=== PATIENT | female | born 1980 | race Caucasian/White ===

== ENCOUNTER 2016-09-19 22:06 | Outpatient (CLI) | payer MEDICAID | END 2016-09-19 22:07 | disposition home or self-care (01) | DX: R42 Dizziness and giddiness (principal); E55.9 Vitamin D deficiency, unspecified ==

== ENCOUNTER 2016-09-28 09:24 | Outpatient (CLI) | payer MEDICAID | END 2016-09-28 09:25 | disposition home or self-care (01) | DX: N39.0 Urinary tract infection, site not specified (principal) ==

== ENCOUNTER 2017-01-19 09:51 | Emergency (ER) | payer MEDICAID ==
[2017-01-19] MEDS ORDERED: KETOROLAC 30 MG/ML VIAL IVP STA (11:51)
[2017-01-19] MEDS ORDERED: PROCHLORPERAZINE 10 MG/2 ML VIAL IVP STA (11:51)
[2017-01-19] MEDS ORDERED: SODIUM CHLORIDE 0.9% 1,000 ML IV ONE (11:51)
[2017-01-19] MEDS ORDERED: diphenhydrAMINE INJ 50 MG/ML VIAL IVP STA (11:51)
--- NOTE | 2017-01-19 11:53 | ED Physician Documentation ---
History of Present Illness - Stated complaint Stated Complaint: MIGRANE - Chief complaint Chief Complaint: Heent - Additonal information Additional information: hx from pt hx migraines has a L sided throbbing [place] similar to prior migraines no fever no ytrauma no CO exposure out of imitrex no numbness or weakness denies preg Review of Systems Constitutional: denies: Fever GI: reports: Nausea. denies: Vomiting : denies: Now EGA Musculoskeletal: denies: Neck pain Neurologic: reports: Headache. denies: Focal weakness, Numbness, Difficulty speaking Immunocompromised: denies: Immunocompromised, Chemotherapy PD PAST MEDICAL HISTORY - Past Medical History Neuro: Headache/migraine : Kidney stones Psych: Anxiety - Past Surgical History Past Surgical History: Yes General: Cholecystectomy - Present Medications Home Medications: Ambulatory Orders Medication Instructions Recorded Confirmed Desvenlafaxine Succinate [Pristiq] 1 tab PO DAILY 01/19/17 01/19/17 Sumatriptan Succinate [Imitrex] 6 mg SQ ONCE PRN #2 cartridge 01/19/17 - Allergies Allergies/Adverse Reactions: Allergies Allergy/AdvReac Type Severity Reaction Status Date / Time amoxicillin trihydrate * Allergy Rash Verified 01/19/17 10:04 [From Augmentin] azithromycin [From Zithromax] Allergy Hives Verified 01/19/17 10:04 Penicillins Allergy Hives Verified 01/19/17 10:04 potassium clavulanate * Allergy Rash Verified 01/19/17 10:04 [From Augmentin] - Social History Does the pt smoke?: Yes Smoking Status: Current every day smoker Does the pt drink ETOH?: No Does the pt have substance abuse?: No - Immunizations Immunizations are current?: Yes - POLST Patient has POLST: No PD ED PE NORMAL - Vitals Vital signs reviewed: Yes - General General: Alert and oriented X 3 - HEENT HEENT: PERRL - Neck Neck: Supple, no meningeal sign - Cardiac Cardiac: RRR - Respiratory Respiratory: No respiratory distress, Clear bilaterally - Derm Derm: Normal color - Neuro Neuro: Alert and oriented X 3, auto hiker 2-12 intact, No motor deficit, No sensory deficit - Psych Psych: Normal mood Results - Vitals Vitals: Vital Signs - 24 hr 01/19/17 01/19/17 01/19/17 10:02 13:05 13:15 Temperature 36.4 C L Heart Rate 72 70 78 Respiratory 12 14 16 Rate Blood Pressure 117/79 135/94 H 135/94 H O2 Saturation 100 100 98 Oxygen O2 Source Room air PD MEDICAL DECISION MAKING - ED course ED course: pt felt better with IVF toradol compazine and benadryl, no dystonic rxn, dc with refill imitrex Departure - Departure Disposition: 01 Home, Self Care Clinical Impression: Migraine Condition: Good Instructions: ED Headache Migraine Follow-Up: Galilea Monreal ARNP [Primary Care Provider] - Prescriptions: Sumatriptan Succinate [Imitrex] 6 mg SQ ONCE PRN #2 cartridge PRN Reason: onset of migraine Forms: Activity restrictions Discharge Date/Time: 01/19/17 13:16
[2017-01-19] MEDS ORDERED: KETOROLAC 30 MG/ML VIAL ONE (12:38)
[2017-01-19] MEDS ORDERED: diphenhydrAMINE INJ 50 MG/ML VIAL ONE (12:38)
[2017-01-19] MEDS ORDERED: PROCHLORPERAZINE 10 MG/2 ML VIAL ONE (12:39)
[2017-01-19 13:06] VITALS: BP 135/94
== END 2017-01-19 13:16 | disposition home or self-care (01) ==
LOC: ED 09:51
DX: G43.909 Migraine, unspecified, not intractable, without status migrainosus (principal); F17.200 Nicotine dependence, unspecified, uncomplicated
CPT/HCPCS: 96361; 96374; 96375; 99283; 99284

== ENCOUNTER 2017-03-07 13:30 | Outpatient (CLI) | payer MEDICAID | END 2017-03-07 13:45 | disposition home or self-care (01) | LOC: RT.N 13:30 | PROVIDERS: ATTEND Nurse Practitioner Gerontology | DX: I34.1 Nonrheumatic mitral (valve) prolapse (principal) | CPT/HCPCS: 93005 ==

== ENCOUNTER 2017-06-27 14:46 | Outpatient (CLI) | payer MEDICAID ==
[2017-06-27 13:07] LABS: HCT - HEMATOCRIT 37.4 % (37.0-47.0); HGB - HEMOGLOBIN 12.7 g/dL (12.0-16.0); MEAN CORPUSCULAR VOLUME 85.1 fL (81.0-99.0); MEAN PLATELET VOLUME 6.8 fL (7.9-10.8); RED BLOOD COUNT 4.4 10^6/uL (4.20-5.40); RED CELL DISTRIBUTION WIDTH 13.3 % (12.0-15.0); WHITE BLOOD COUNT 7.9 x10^3/uL (4.8-10.8)
[2017-06-27 13:29] LABS: ALBUMIN/GLOBULIN RATIO 1.2 (1.0-2.2); BILIRUBIN,TOTAL 0.5 mg/dL (0.2-1.0); CALCIUM 8.7 mg/dL (8.5-10.3); CREATININE 0.7 mg/dL (0.4-1.0); POTASSIUM 3.8 mmol/L (3.5-5.0); TOTAL PROTEIN 7.4 g/dL (6.7-8.2)
== END 2017-06-27 14:47 | disposition home or self-care (01) ==
LOC: LAB.N 14:46
PROVIDERS: ATTEND Nurse Practitioner Psychiatric/Mental Health
DX: F32.1 Major depressive disorder, single episode, moderate (principal); F43.10 Post-traumatic stress disorder, unspecified
CPT/HCPCS: 36415; 80053; 84443

== ENCOUNTER 2018-01-10 08:01 | Emergency (ER) | payer MEDICAID ==
[2018-01-10] MEDS ORDERED: KETOROLAC 30 MG/ML VIAL IVP STA (09:09)
[2018-01-10] MEDS ORDERED: PROCHLORPERAZINE 10 MG/2 ML VIAL IVP STA (09:09)
[2018-01-10] MEDS ORDERED: diphenhydrAMINE INJ 50 MG/ML VIAL IVP STA (09:09)
[2018-01-10] MEDS ORDERED: DEXAMETHASONE 10 MG/ML VIAL PO STA (09:10)
--- NOTE | 2018-01-10 09:12 | ED Physician Documentation ---
PD HPI HEADACHE - Stated complaint Stated Complaint: H/A - Chief complaint Chief Complaint: Neuro - History obtained from History obtained from: Patient - History of Present Illness Timing - onset: How many weeks ago (1) Timing - details: Still present, Waxing and waning Worst headache ever?: Worst headache ever? (no.) Location: Global Quality: Aching Improved by: Meds (Temporary improvement with Ibuprophen.) Similar symptoms before: Diagnosis (History of tension headaches and migraine headaches.) - Additional information Additional information: The patient is a 37-year-old female who presents with global headache that has been waxing and waning for the past week, on a daily basis. She gets temporary improvement with ibuprofen. She denies associated fever, nausea or vomiting, numbness or weakness. She has history of both tension headaches and migraine headaches, but not usually this bad. She underwent right sinus surgery 11 days ago. Review of Systems Constitutional: denies: Fever Eyes: reports: Photophobia (mild) Ears: denies: Ear pain Nose: denies: Congestion Throat: denies: Sore throat Cardiac: denies: Chest pain / pressure Respiratory: denies: Dyspnea GI: denies: Nausea, Vomiting : denies: Dysuria Skin: denies: Rash Musculoskeletal: denies: Neck pain Neurologic: reports: Headache. denies: Focal weakness, Numbness PD PAST MEDICAL HISTORY - Past Medical History Neuro: Headache/migraine : Kidney stones Psych: Anxiety - Past Surgical History Past Surgical History: Yes General: Cholecystectomy - Present Medications Home Medications: Ambulatory Orders Medication Instructions Recorded Confirmed Desvenlafaxine Succinate [Pristiq] 1 tab PO DAILY 01/19/17 01/19/17 Sumatriptan Succinate [Imitrex] 6 mg SQ ONCE PRN #2 cartridge 01/19/17 Atomoxetine HCl [Strattera] 01/10/18 - Allergies Allergies/Adverse Reactions: Allergies Allergy/AdvReac Type Severity Reaction Status Date / Time amoxicillin trihydrate * Allergy Rash Verified 01/10/18 08:26 [From Augmentin] azithromycin [From Zithromax] Allergy Hives Verified 01/10/18 08:26 Penicillins Allergy Hives Verified 01/10/18 08:26 potassium clavulanate * Allergy Rash Verified 01/10/18 08:26 [From Augmentin] - Social History Does the pt smoke?: Yes Smoking Status: Current every day smoker Does the pt drink ETOH?: No Does the pt have substance abuse?: No - Immunizations Immunizations are current?: Yes - POLST Patient has POLST: No PD ED PE NORMAL - Vitals Vital signs reviewed: Yes (Mild systolic hypertension initially.) - General General: Alert and oriented X 3, Well developed/nourished, Other (Appears miserable.) - HEENT HEENT: Atraumatic, PERRL, EOMI, Ears normal, Pharynx benign, Other (,Fundi with normal vasculature, without papilledema.) - Neck Neck: Supple, no meningeal sign, No adenopathy, No JVD - Cardiac Cardiac: RRR - Respiratory Respiratory: No respiratory distress, Clear bilaterally - Abdomen Abdomen: Soft, Non tender - Back Back: No CVA TTP - Derm Derm: No rash - Neuro Neuro: Alert and oriented X 3, No motor deficit, Normal speech Results - Vitals Vitals: Vital Signs - 24 hr 01/10/18 01/10/18 08:24 10:14 Temperature 36.8 C 36.6 C Heart Rate 90 72 Respiratory 18 20 Rate Blood Pressure 137/78 H 132/79 H O2 Saturation 100 98 Oxygen O2 Source Room air PD MEDICAL DECISION MAKING - ED course Complexity details: reviewed old records, re-evaluated patient, considered differential, d/w patient ED course: The patient's headache is nonspecific, but is consistent with migraine. Her presentation does not suggest meningitis, temporal arteritis, pseudotumor cerebri, or intracranial hemorrhage. Treatment in the emergency department included administration of ketorolac 30 mg IV, Compazine 10 mg IV, Benadryl 25 mg IV, and dexamethasone 10 mg orally. Her headache completely resolved with the above treatment. I discussed with her outpatient follow-up as well as potentially worrisome signs or symptoms that should prompt reevaluation in the emergency department. She has Imitrex at home if needed for recurrent headaches. Departure - Departure Disposition: 01 Home, Self Care Clinical Impression: Headache Qualifiers: Headache type: unspecified Headache chronicity pattern: acute headache Intractability: not intractable Qualified Code(s): R51 - Headache Condition: Stable Instructions: ED Cephalgia Unspecified Follow-Up: Galilea Monreal ARNP [Primary Care Provider] - Comments: Drink plenty of fluids. You can use Imitrex as previously prescribed if needed for headache. Follow up with your primary physician within 2 weeks. Call to schedule appointment. Return to the emergency [facility] if you develop increasing headache, persistent vomiting, or otherwise worsening symptoms.
[2018-01-10 10:18] VITALS: BP 132/79
== END 2018-01-10 10:35 | disposition home or self-care (01) ==
LOC: ED 08:01
DX: R51 Headache (principal)
CPT/HCPCS: 96374; 96375; 99283; J1200

== ENCOUNTER 2018-10-23 09:40 | Emergency (ER) | payer BC, MEDICAID ==
[2018-10-23 09:53] VITALS: BP 156/94
[2018-10-23] MEDS ORDERED: FAMOTIDINE 20 MG TABLET PO STA (10:03)
[2018-10-23] MEDS ORDERED: LIDOCAINE VISCOUS 2% 15 ML UDC MM STA (10:03)
[2018-10-23] MEDS ORDERED: PHENobarb/HYOSCY/ATROPINE/SCOP 5 ML UDC PO STA (10:03)
[2018-10-23] MEDS ORDERED: MAG HYDROX/AL HYDROX/SIMETH 30 ML UDC PO STA (10:03)
[2018-10-23] MEDS ORDERED: SUCRALFATE 1 GM/10 ML UDC PO STA (10:04)
[2018-10-23 10:15] LABS: BASOPHILS # (AUTO) 0.1 10^3/uL (0.0-0.1); BASOPHILS % (AUTO) 0.8 %; EOSINOPHILS # (AUTO) 0.1 10^3/uL (0.0-0.7); EOSINOPHILS % (AUTO) 1.6 %; HGB - HEMOGLOBIN 12.9 g/dL (12.0-16.0); LYMPHOCYTES # (AUTO) 2.1 10^3/uL (1.5-3.5); LYMPHOCYTES % (AUTO) 31.4 %; MEAN CORPUSCULAR HEMOGLOBIN 30.4 pg (27.0-31.0); MEAN CORPUSCULAR HGB CONC 35.6 g/dL (32.0-36.0); MEAN CORPUSCULAR VOLUME 85.3 fL (81.0-99.0); MEAN PLATELET VOLUME 6.3 fL (7.9-10.8); MONOCYTES # (AUTO) 0.4 10^3/uL (0.0-1.0); MONOCYTES % (AUTO) 6.4 %; NEUTROPHILS # (AUTO) 4.1 10^3/uL (1.5-6.6); NEUTROPHILS % (AUTO) 59.8 %; PLT - PLATELET COUNT 400 10^3/uL (130-450); RED BLOOD COUNT 4.23 10^6/uL (4.20-5.40); RED CELL DISTRIBUTION WIDTH 13.3 % (12.0-15.0); WHITE BLOOD COUNT 6.8 x10^3/uL (4.8-10.8)
[2018-10-23 10:28] LABS: ALBUMIN/GLOBULIN RATIO 1.3 (1.0-2.2); CALCIUM 8.8 mg/dL (8.5-10.3); CREATININE 0.6 mg/dL (0.4-1.0); TOTAL PROTEIN 7.1 g/dL (6.7-8.2)
--- NOTE | 2018-10-23 10:38 | ED Physician Documentation ---
PD HPI ABD PAIN - Stated complaint Stated Complaint: ABD PX/N/D - Chief complaint Chief Complaint: Abd Pain - History obtained from History obtained from: Patient - History of Present Illness Timing - onset: How many weeks ago (several) Timing - duration: Weeks Timing - details: Gradual onset Pain level max: 6 Pain level now: 4 Quality: Dull, Indigestion Location: Epigastric Radiation: Chest Improved by: Meds (prilosec, took for 1 week then stopped) Worsened by: Eating Associated symptoms: Nausea. No: Fever, Vomiting, Hematemesis, Diarrhea, Consti pation, Melena, Hematochezia, Dysuria, Hematuria Similar symptoms before: Diagnosis (GERD) Recently seen: Not recently seen Review of Systems Constitutional: denies: Fever, Chills Respiratory: denies: Cough : denies: Dysuria, Now EGA Skin: denies: Rash PD PAST MEDICAL HISTORY - Past Medical History Past Medical History: Yes GI: GERD : Kidney stones Psych: Anxiety - Past Surgical History Past Surgical History: Yes General: Cholecystectomy - Present Medications Home Medications: Ambulatory Orders Medication Instructions Recorded Confirmed Desvenlafaxine Succinate [Pristiq] 1 tab PO DAILY 01/19/17 10/23/18 Sumatriptan Succinate [Imitrex] 6 mg SQ ONCE PRN #2 cartridge 01/19/17 10/23/18 Atomoxetine HCl [Strattera] 1 cap PO DAILY 01/10/18 10/23/18 Esomeprazole Magnesium [Nexium] 40 mg PO DAILY #30 capsule. 10/23/18 Sucralfate [Carafate] 1 gm PO ACHS #60 tablet 10/23/18 Temazepam [Restoril] 30 mg PO DAILY 10/23/18 10/23/18 cloNIDine [Catapres] 1 tab PO BID 10/23/18 10/23/18 - Allergies Allergies/Adverse Reactions: Allergies Allergy/AdvReac Type Severity Reaction Status Date / Time amoxicillin trihydrate * Allergy Rash Verified 10/23/18 09:54 [From Augmentin] azithromycin [From Zithromax] Allergy Hives Verified 10/23/18 09:54 Penicillins Allergy Hives Verified 10/23/18 09:54 potassium clavulanate * Allergy Rash Verified 10/23/18 09:54 [From Augmentin] - Social History Does the pt smoke?: Yes Smoking Status: Current every day smoker Does the pt drink ETOH?: No Does the pt have substance abuse?: No - Immunizations Immunizations are current?: Yes - POLST Patient has POLST: No PD ED PE NORMAL - Vitals Vital signs reviewed: Yes - General General: Alert and oriented X 3, No acute distress, Well developed/nourished - HEENT HEENT: PERRL, Moist mucous membranes - Neck Neck: Supple, no meningeal sign - Cardiac Cardiac: RRR - Respiratory Respiratory: No respiratory distress, Clear bilaterally - Abdomen Abdomen: Soft, Non distended, Other (Tender palpation epigastric without peritoneal signs) - Back Back: No CVA TTP, No spinal TTP - Derm Derm: Warm and dry - Extremities Extremities: No edema - Neuro Neuro: Alert and oriented X 3 - Psych Psych: Normal mood, Normal affect Results - Vitals Vitals: Vital Signs - 24 hr 10/23/18 09:50 Temperature 36.4 C L Heart Rate 101 H Respiratory 14 Rate Blood Pressure 156/94 H O2 Saturation 100 Oxygen O2 Source Room air - Labs Labs: Laboratory Tests 10/23/18 10/23/18 10:09 10:09 WBC 6.8 RBC 4.23 Hgb 12.9 Hct 36.1 L MCV 85.3 MCH 30.4 MCHC 35.6 RDW 13.3 Plt Count 400 MPV 6.3 L Neut # (Auto) 4.1 Lymph # (Auto) 2.1 [place] # (Auto) 0.4 Eos # (Auto) 0.1 Baso # (Auto) 0.1 Absolute Nucleated RBC 0.01 Nucleated RBC % 0.1 Sodium 136 Potassium 3.7 Chloride 101 Carbon Dioxide 25 Anion Gap 10.0 BUN 7 Creatinine 0.6 Estimated GFR (MDRD) 111 Glucose 119 H Calcium 8.8 Total Bilirubin 1.0 AST 18 ALT 23 Alkaline Phosphatase 83 Total Protein 7.1 Albumin 4.0 Globulin 3.1 Albumin/Globulin Ratio 1.3 Lipase 28 PD MEDICAL DECISION MAKING - ED course Complexity details: reviewed results, re-evaluated patient, considered differential, d/w patient ED course: 38-year-old female with what appears to be gastritis. Feels better after GI cocktail. Will place on a PPI for home as well as Carafate. I will have her follow-up with her doctor for further care. No significant lab abnormalities. She is status post cholecystectomy 16 years ago. Patient is well-appearing, nontoxic. Afebrile. Tolerating p.o. without difficulty. Patient counseled regarding signs and symptoms for which I believe and urgent re-evaluation would be necessary. Patient with good understanding of and agreement to plan and is comfortable going home at this time This document was made in part using voice recognition software. While efforts are made to proofread this document, sound alike and grammatical errors may occur. Departure - Departure Disposition: 01 Home, Self Care Clinical Impression: Gastritis Qualifiers: Gastritis type: unspecified gastritis Chronicity: acute Gastritis bleeding: without bleeding Qualified Code(s): K29.00 - Acute gastritis without bleeding Condition: Good Instructions: ED Gastritis Follow-Up: Galilea Monreal ARNP [Primary Care Provider] - Within 1 week Prescriptions: Esomeprazole Magnesium [Nexium] 40 mg PO DAILY #30 capsule. Sucralfate [Carafate] 1 gm PO ACHS #60 tablet Comments: Take the medications as prescribed. Return if you worsen. Follow-up with your doctor for further evaluation and care. Your laboratory testing is normal today. Discharge Date/Time: 10/23/18 10:43
== END 2018-10-23 10:43 | disposition home or self-care (01) ==
LOC: ED 09:40
DX: K29.00 Acute gastritis without bleeding (principal); F17.200 Nicotine dependence, unspecified, uncomplicated
CPT/HCPCS: 36415; 80053; 83690; 85025; 99281; 99283; A9270

== ENCOUNTER 2018-11-27 06:35 | Day surgery (SDC) | payer BC, MEDICAID ==
[2018-11-27] MEDS ORDERED: LACTATED RINGERS 1,000 ML IV ONE (06:43)
[2018-11-27] MEDS ORDERED: LIDO GARGLE 30 ML BOTTLE PO ONE (07:35)
[2018-11-27] MEDS ORDERED: LIDO GARGLE 30 ML BOTTLE ONE (08:13)
[2018-11-27] MEDS ORDERED: fentaNYL 250 MCG/5 ML VIAL IVP ONE (08:51)
[2018-11-27] MEDS ORDERED: MIDAZOLAM 2 MG/2 ML VIAL IVP ONE (08:51)
[2018-11-27 09:32] VITALS: BP 121/83
== END 2018-11-27 06:36 | disposition home or self-care (01) ==
LOC: SDS 06:35
PROVIDERS: ATTEND Internal Medicine Gastroenterology
PROC: 0DBM8ZX Excision of Descending Colon, Via Natural or Artificial Opening Endoscopic, Diagnostic (ICD-10-PCS; 2018-11-27)
PROC: 0DBN8ZZ Excision of Sigmoid Colon, Via Natural or Artificial Opening Endoscopic (ICD-10-PCS; 2018-11-27)
PROC: 0DB98ZX Excision of Duodenum, Via Natural or Artificial Opening Endoscopic, Diagnostic (ICD-10-PCS; 2018-11-27)
PROC: 0DB68ZX Excision of Stomach, Via Natural or Artificial Opening Endoscopic, Diagnostic (ICD-10-PCS; 2018-11-27)
PROC: 0DB48ZX Excision of Esophagogastric Junction, Via Natural or Artificial Opening Endoscopic, Diagnostic (ICD-10-PCS; 2018-11-27)
PROC: 0DBK8ZX Excision of Ascending Colon, Via Natural or Artificial Opening Endoscopic, Diagnostic (ICD-10-PCS; principal; 2018-11-27 08:15)
PROC: 0DBP8ZZ Excision of Rectum, Via Natural or Artificial Opening Endoscopic (ICD-10-PCS; 2018-11-27 08:15)
DX: R10.9 Unspecified abdominal pain (principal); D12.5 Benign neoplasm of sigmoid colon; K62.1 Rectal polyp; K21.9 Gastro-esophageal reflux disease without esophagitis; R19.7 Diarrhea, unspecified; K59.00 Constipation, unspecified; K31.9 Disease of stomach and duodenum, unspecified; K58.0 Irritable bowel syndrome with diarrhea
CPT/HCPCS: 43239; 45380; 45385; A9270; J3010; J7120

== ENCOUNTER 2019-03-12 12:39 | Emergency (ER) | payer BC, MEDICAID ==
[2019-03-12 12:44] VITALS: BP 133/91
[2019-03-12] MEDS ORDERED: CHERRY SYRUP 10 ML UDC PO ONE (14:49)
[2019-03-12] MEDS ORDERED: DEXAMETHASONE 10 MG/ML VIAL PO STA (14:49)
--- NOTE | 2019-03-12 14:51 | ED Physician Documentation ---
PD HPI HEENT - Stated complaint Stated Complaint: SINUS PRESSURE - Chief complaint Chief Complaint: General - History obtained from History obtained from: Patient - History of Present Illness Timing - onset: How many days ago (3) Timing - duration: Days (3) Timing - details: Gradual onset, Still present Location: Sinuses Improves: Medication Associated symptoms: Congestion, Rhinorrhea, Facial swelling, Headache, Cough Similar symptoms before: Diagnosis (sinusitis) Recently seen: Not recently seen - Additional information Additional information: 38-year-old female with a prior history of sinus disease has developed a cough and congestion with sinus pressure and she is not able to breathe through her nose at all. She is come to the emergency department for treatment. She is all ergic to amoxicillin and azithromycin. Review of Systems Constitutional: denies: Fever Eyes: denies: Decreased vision Ears: denies: Ear pain Nose: reports: Rhinorrhea / runny nose, Congestion, Sinus pressure / pain Throat: denies: Sore throat Cardiac: denies: Chest pain / pressure, Palpitations Respiratory: reports: Cough. denies: Dyspnea GI: denies: Vomiting PD PAST MEDICAL HISTORY - Past Medical History Past Medical History: No Cardiovascular: None Respiratory: None Neuro: None Endocrine/Autoimmune: None GI: GERD CADDIE: None : Kidney stones HEENT: None Psych: Depression, Anxiety, Panic attacks, ADD/ADHD, Post traumatic stress disorder Musculoskeletal: None Derm: None - Past Surgical History Past Surgical History: Yes General: Cholecystectomy - Present Medications Home Medications: Ambulatory Orders Medication Instructions Recorded Confirmed Desvenlafaxine Succinate [Pristiq] 1 tab PO DAILY 01/19/17 11/27/18 Sumatriptan Succinate [Imitrex] 6 mg SQ ONCE PRN #2 cartridge 01/19/17 11/26/18 Atomoxetine HCl [Strattera] 1 cap PO DAILY 01/10/18 11/27/18 Esomeprazole Magnesium [Nexium] 40 mg PO DAILY #30 capsule. 10/23/18 11/27/18 Temazepam [Restoril] 30 mg PO DAILY PRN 10/23/18 11/27/18 cloNIDine [Catapres] 1 tab PO BID 10/23/18 11/27/18 Cefdinir 300 mg PO BID #20 capsule 03/12/19 - Allergies Allergies/Adverse Reactions: Allergies Allergy/AdvReac Type Severity Reaction Status Date / Time amoxicillin trihydrate * Allergy Rash Verified 03/12/19 12:44 [From Augmentin] azithromycin [From Zithromax] Allergy Hives Verified 03/12/19 12:44 Penicillins Allergy Hives Verified 03/12/19 12:44 potassium clavulanate * Allergy Rash Verified 03/12/19 12:44 [From Augmentin] - Social History Does the pt smoke?: No Smoking Status: Former smoker Does the pt drink ETOH?: No Does the pt have substance abuse?: No - Immunizations Immunizations are current?: Yes - POLST Patient has POLST: No PD ED PE NORMAL - Vitals Vital signs reviewed: Yes (hypertensive mild ) - General General: Alert and oriented X 3, No acute distress, Well developed/nourished - HEENT HEENT: Atraumatic, PERRL, EOMI, Other (both TM's are inflamed the maxillary sinuses are tender to palpation bilaterally frontals are not. ) - Neck Neck: Supple, no meningeal sign, No bony TTP - Cardiac Cardiac: RRR, No murmur - Respiratory Respiratory: No respiratory distress, Clear bilaterally - Abdomen Abdomen: Soft, Non tender - Derm Derm: Normal color, Warm and dry, No rash - Extremities Extremities: No deformity, No edema - Neuro Neuro: Alert and oriented X 3, comfort advisor 2-12 intact, No motor deficit, No sensory deficit, Normal speech Eye Opening: Spontaneous Motor: Obeys Commands Verbal: Oriented GCS Score: 15 - Psych Psych: Normal mood, Normal affect Results - Vitals Vitals: Vital Signs - 24 hr 03/12/19 12:41 Temperature 36.9 C Heart Rate 100 Respiratory 19 Rate Blood Pressure 133/91 H O2 Saturation 96 Oxygen O2 Source Room air PD MEDICAL DECISION MAKING - ED course Complexity details: considered differential, d/w patient ED course: 38-year-old female with acute sinusitis is administered dexamethasone 10 mg orally and we will place her on some Cefdinir Departure - Departure Disposition: 01 Home, Self Care Clinical Impression: Sinusitis Condition: Stable Instructions: ED Sinusitis Abx Tx Follow-Up: Skylar Chapin ARNP, [facility] [Primary Care Provider] - Prescriptions: Cefdinir 300 mg PO BID #20 capsule
== END 2019-03-12 15:01 | disposition home or self-care (01) ==
LOC: ED 12:39
DX: J01.00 Acute maxillary sinusitis, unspecified (principal); Z87.891 Personal history of nicotine dependence
CPT/HCPCS: 99282; 99284; A9270

== ENCOUNTER 2019-10-16 09:23 | Emergency (ER) | payer BC, MEDICAID ==
[2019-10-16 09:36] VITALS: BP 145/84
[2019-10-16] MEDS ORDERED: TETANUS/DIPHTHERIA/PERTUSSIS 0.5 ML SYRINGE IM ONE (09:58)
--- NOTE | 2019-10-16 10:14 | ED Physician Documentation ---
History of Present Illness - Stated complaint Stated Complaint: LAC FINGER ON L HAND - Chief complaint Chief Complaint: Laceration - History obtained from History obtained from: Patient - History of Present Illness Timing: Other (L index finger) Pain level max: 0 Pain level now: 0 - Additonal information Additional information: laceration to the L index finger from a knife. Patient is right-handed. Unknown last tetanus shot. Nothing makes it better or worse. 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 This is been ongoing for the last week. No known injury. 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 10/23/18 11/27/18 Temazepam [Restoril] 30 mg PO DAILY PRN 10/23/18 11/27/18 cloNIDine [Catapres] 1 tab PO BID 10/23/18 11/27/18 Cefdinir 300 mg PO BID #20 capsule 03/12/19 - Allergies Allergies/Adverse Reactions: Allergies Allergy/AdvReac Type Severity Reaction Status Date / Time amoxicillin trihydrate * Allergy Rash Verified 10/16/19 09:36 [From Augmentin] azithromycin [From Zithromax] Allergy Hives Verified 10/16/19 09:36 Penicillins Allergy Hives Verified 10/16/19 09:36 potassium clavulanate * Allergy Rash Verified 10/16/19 09:36 [From Augmentin] - Social History Does the pt smoke?: No Smoking Status: Former smoker Does the pt drink ETOH?: No Does the pt have substance abuse?: No - Immunizations Immunizations are current?: Yes - POLST Patient has POLST: No PD ED PE NORMAL - Vitals Vital signs reviewed: Yes - General General: Alert and oriented X 3, No acute distress - HEENT HEENT: Moist mucous membranes - Derm Derm: Warm and dry - Extremities Extremities: Other (L index finger Superficial laceration to the proximal phalanx. No active bleeding. No tendon injury. Neurovascular intact. No bony tenderness over the hand. Otherwise normal examination of the hand.) - Neuro Neuro: Alert and oriented X 3 Results - Vitals Vitals: Vital Signs - 24 hr 10/16/19 09:32 Temperature 36.9 C Heart Rate 86 Respiratory 16 Rate Blood Pressure 145/84 H O2 Saturation 98 Oxygen O2 Source Room air Procedures - Laceration (location) L index finger Length in cm: 1.5 Wound type: Linear, Superficial, Clean Neurovascular status: Sensory intact, Motor intact, Vascular intact Tendon involvement: Tendon intact Wound Preparation: Irrigated copiously NS Skin layer closure: Dermabond Other: Patient tolerated well, No complications, Neurovascular intact, Tetanus booster given (tdap) Complexity: Simple PD MEDICAL DECISION MAKING - ED course Complexity details: considered differential, d/w patient ED course: Laceration repaired. Tolerated well. Appears to have a strain of the muscles in the hand as well. We will continue supportive care for this. Patient is right-handed. Warnings of infection and instructions on wound care given at bedside. Also counseled on how to minimize scarring. Patient counseled regarding signs and symptoms for which I believe and urgent re-evaluation would be necessary. Patient with good understanding of and agreement to plan and is comfortable going home at this time This document was made in part using voice recognition software. While efforts are made to proofread this document, sound alike and grammatical errors may occur. Departure - Departure Disposition: 01 Home, Self Care Clinical Impression: Laceration of left index finger Qualifiers: Encounter type: initial encounter Damage to nail status: unspecified Foreign body presence: unspecified Qualified Code(s): S61.211A - Laceration without foreign body of left index finger without damage to nail, initial encounter Strain of left hand Qualifiers: Encounter type: initial encounter Qualified Code(s): S66.912A - Strain of unspecified muscle, fascia and tendon at wrist and hand level, left hand, initial encounter Condition: Good Instructions: ED Laceration Hand Follow-Up: your,doctor as needed [Other] Comments: Return if you notice redness, swelling or drainage from the wound. Your hand pain should also improve over the next week or so. You can use Motrin or Tylenol as needed for pain.
== END 2019-10-16 10:20 | disposition home or self-care (01) ==
LOC: ED 09:23
DX: S61.211A Laceration without foreign body of left index finger without damage to nail, initial encounter (principal); W26.0XXA Contact with knife, initial encounter; S66.912A Strain of unspecified muscle, fascia and tendon at wrist and hand level, left hand, initial encounter; X58.XXXA Exposure to other specified factors, initial encounter; Z23 Encounter for immunization; Z87.891 Personal history of nicotine dependence
CPT/HCPCS: 12001; 12011; 90471; 99283; 99284

== ENCOUNTER 2020-02-23 19:29 | Emergency (ER) | payer MEDICAID ==
--- NOTE | 2020-02-23 19:39 | ED Physician Documentation ---
PD HPI HEENT - Stated complaint Stated Complaint: SINUS PX - History obtained from History obtained from: Patient - History of Present Illness Timing - onset: How many days ago (10) Timing - duration: Days Timing - details: Intermittant Location: Sinuses Improves: Nothing Worsens: Other (no exacerbating factors) Associated symptoms: Congestion, Headache. 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 10/23/18 11/27/18 Temazepam [Restoril] 30 mg PO DAILY PRN 10/23/18 11/27/18 cloNIDine [Catapres] 1 tab PO BID 10/23/18 11/27/18 Cefdinir 300 mg PO BID #20 capsule 03/12/19 Cefdinir 300 mg PO BID #20 capsule 02/23/20 Fluticasone [Flonase] 1 sprays DIGNA BID #1 bottle 02/23/20 - Allergies Allergies/Adverse Reactions: Allergies Allergy/AdvReac Type Severity Reaction Status Date / Time amoxicillin trihydrate * Allergy Rash Verified 10/16/19 09:36 [From Augmentin] azithromycin [From Zithromax] Allergy Hives Verified 10/16/19 09:36 Penicillins Allergy Hives Verified 10/16/19 09:36 potassium clavulanate * Allergy Rash Verified 10/16/19 09:36 [From Augmentin] - Social History Does the pt smoke?: No Smoking Status: Former smoker Does the pt drink ETOH?: No Does the pt have substance abuse?: No - Immunizations Immunizations are current?: Yes - POLST Patient has POLST: No PD ED PE NORMAL - Vitals Vital signs reviewed: Yes - General General: Alert and oriented X 3, No acute distress, Well developed/nourished - HEENT HEENT: Moist mucous membranes, Pharynx benign, Other (tender to percussion over bilateral maxillary sinuses without erythema or overt/visible swelling) - Neck Neck: Supple, no meningeal sign - Respiratory Respiratory: No respiratory distress, Clear bilaterally Results - Vitals Vitals: Vital Signs - 24 hr 02/23/20 19:39 Temperature 36.6 C Heart Rate 89 Respiratory 16 Rate Blood Pressure 153/91 H O2 Saturation 97 Oxygen O2 Source Room air PD MEDICAL DECISION MAKING - ED course Complexity details: considered differential, d/w patient Departure - Departure Disposition: 01 Home, Self Care Clinical Impression: Sinusitis Condition: Good Instructions: ED Sinusitis Abx Tx Prescriptions: Cefdinir 300 mg PO BID #20 capsule Fluticasone [Flonase] 1 sprays DIGNA BID #1 bottle Discharge Date/Time: 02/23/20 20:18
[2020-02-23 19:41] VITALS: BP 153/91
[2020-02-23] MEDS ORDERED: DEXAMETHASONE 10 MG/ML VIAL PO STA (20:01)
[2020-02-23] MEDS ORDERED: CHERRY SYRUP 10 ML UDC PO ONE (20:01)
[2020-02-23] MEDS ORDERED: cephALEXin 250 MG CAPSULE PO STA (20:10)
== END 2020-02-23 20:18 | disposition home or self-care (01) ==
LOC: ED 19:29
DX: J32.0 Chronic maxillary sinusitis (principal); Z87.891 Personal history of nicotine dependence
CPT/HCPCS: 99282; 99283; A9270

== ENCOUNTER 2020-06-03 15:22 | Emergency (ER) | payer MEDICAID ==
[2020-06-03] MEDS ORDERED: DEXAMETHASONE 10 MG/ML VIAL PO STA (15:56)
[2020-06-03] MEDS ORDERED: MECLIZINE 12.5 MG TABLET PO STA (15:56)
[2020-06-03] MEDS ORDERED: CHERRY SYRUP 10 ML UDC PO ONE (15:56)
--- NOTE | 2020-06-03 16:03 | ED Physician Documentation ---
History of Present Illness - Stated complaint Stated Complaint: DIZZY SPELLS,HEADACHE - Chief complaint Chief Complaint: Neuro - History obtained from History obtained from: Patient - History of Present Illness Timing: Today - Additonal information Additional information: 39 y/o female with a history of sinus infection has developed dizziness and an occipital headache. She has dizziness with head movement and with eye movement. She has nausea. She denies cough, fever, ear pain, muffled hearing or sore throat. She denies maxillary sinus tenderness. Review of Systems Constitutional: denies: Fever, Chills, Myalgias, Fatigue Eyes: denies: Decreased vision Ears: denies: Ear pain Nose: denies: Rhinorrhea / runny nose, Congestion Throat: denies: Sore throat Cardiac: denies: Chest pain / pressure, Palpitations Respiratory: denies: Dyspnea, Cough GI: reports: Nausea. denies: Abdominal Pain, Vomiting : denies: Dysuria, Frequency Skin: denies: Rash Musculoskeletal: denies: Neck pain, Back pain, Extremity pain Neurologic: reports: Headache. 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 10/23/18 11/27/18 Temazepam [Restoril] 30 mg PO DAILY PRN 10/23/18 11/27/18 cloNIDine [Catapres] 1 tab PO BID 10/23/18 11/27/18 Cefdinir 300 mg PO BID #20 capsule 03/12/19 Cefdinir 300 mg PO BID #20 capsule 02/23/20 Fluticasone [Flonase] 1 sprays DIGNA BID #1 bottle 02/23/20 Meclizine [Antivert] 25 mg PO Q6H PRN #20 tablet 06/03/20 - Allergies Allergies/Adverse Reactions: Allergies Allergy/AdvReac Type Severity Reaction Status Date / Time amoxicillin trihydrate * Allergy Rash Verified 06/03/20 15:47 [From Augmentin] azithromycin [From Zithromax] Allergy Hives Verified 06/03/20 15:47 Penicillins Allergy Hives Verified 06/03/20 15:47 potassium clavulanate * Allergy Rash Verified 06/03/20 15:47 [From Augmentin] - Social History Does the pt smoke?: No Smoking Status: Never smoker Does the pt drink ETOH?: No Does the pt have substance abuse?: No - Immunizations Immunizations are current?: Yes - POLST Patient has POLST: No PD ED PE NORMAL - Vitals Vital signs reviewed: Yes (hypertensive) - General General: Alert and oriented X 3, No acute distress, Well developed/nourished - HEENT HEENT: Atraumatic, PERRL, EOMI, Ears normal, Moist mucous membranes, Pharynx benign, Dentition benign, Other (3 beats of nystagmus bilaterally ) - Neck Neck: Supple, no meningeal sign, No bony TTP - Cardiac Cardiac: RRR, No murmur - Respiratory Respiratory: No respiratory distress, Clear bilaterally - Abdomen Abdomen: Soft, Non tender - Back Back: No CVA TTP, No spinal TTP - Derm Derm: Normal color, Warm and dry, No rash - Extremities Extremities: No deformity, Normal ROM s pain, No edema, No calf tenderness / cord - Neuro Neuro: Alert and oriented X 3, 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 At the inferior aspect of the left maxillary sinus, there is chronic remodeling changes seen surrounding a maxillary molar. Please correlate with dental history.), EMP read indepedently, See rad report PD MEDICAL DECISION MAKING - ED course Complexity details: reviewed results, re-evaluated patient, considered differential, d/w patient ED course: 39 y/o female with acute labyrinthitis has an occipital headache and a history of recurrent sinusitis. I felt it important to rule out a sphenoid sinus infection and a screening sinus CT is obtained which demonstrates no obvious sinus involvement. She is administered PO decadron and meclizine with mild improvement. Departure - Departure Disposition: Home, Self Care Clinical Impression: Labyrinthitis Qualifiers: Laterality: unspecified laterality Qualified Code(s): H83.09 - Labyrinthitis, unspecified ear Condition: Stable Instructions: ED Labyrinthitis Follow-Up: Skylar Chapin ARNP, INSURANCE VERIFICATION SPECIALIST-C [Primary Care Provider] - Prescriptions: Meclizine [Antivert] 25 mg PO Q6H PRN #20 tablet PRN Reason: Dizziness
--- NOTE | 2020-06-03 16:32 | CT Report ---
PROCEDURE: Sinuses INDICATIONS: dizzy, headache, sinus problems TECHNIQUE: Noncontrast 3.0 mm axial images acquired from the frontal sinuses to the mid-sella, with coronal and sagittal reformats. For radiation dose reduction, the following was used: automated exposure control , adjustment of mA and/or kV according to patient size. COMPARISON: None. FINDINGS: Image quality: Excellent. Maxillary Sinuses: At the inferior aspects of the left maxillary sinus, there is lucency and bony re modeling seen surrounding the roots of the maxillary molar, as on series 5 image 17. There has been r emoval of portions of the medial wall of the right maxillary sinus. Sinuses are otherwise clear. Ethmoid Air Cells: No bony remodeling or destruction. Sinuses are clear. Sphenoid Sinuses: No bony remodeling or destruction. Sinuses are clear. Frontal Sinuses: No bony remodeling or destruction. Sinuses are clear. Ostiomeatal Complexes: Right sided antrectomy, with removal of the right ostiomeatal complex. The le ft ostiomeatal complex is patent. No Kevin cells. Miscellaneous: Visualized intra-orbital contents are normal. No ruchi bullosa. There is minimal le ftward nasal septal deviation. IMPRESSION: No significant active paranasal sinus disease is seen. At the inferior aspect of the left left maxillary sinus, there is chronic remodeling change seen surr ounding a maxillary molar. Please correlate with dental history. Reviewed by: Joshua Avendano MD on 06/03/2020 3:30 PM [facility] Approved by: Joshua Avendano MD on 06/03/2020 3:30 PM [facility] Station ID: [id number]
[2020-06-03 16:42] VITALS: BP 139/86
== END 2020-06-03 16:52 | disposition home or self-care (01) ==
LOC: ED 15:22
DX: H83.09 Labyrinthitis, unspecified ear (principal); Z87.09 Personal history of other diseases of the respiratory system
CPT/HCPCS: 70486; 99284; A9270

== ENCOUNTER 2020-06-28 16:21 | Emergency (ER) | payer MEDICAID ==
[2020-06-28] MEDS ORDERED: BACITRACIN ZINC OINT 1 PACKET TOP STA (17:03)
[2020-06-28] MEDS ORDERED: BUFFERED LIDOCAINE 10 ML SYRINGE SUBQ STA (17:03)
--- NOTE | 2020-06-28 17:06 | ED Physician Documentation ---
History of Present Illness - Stated complaint Stated Complaint: LT FINGER LAC - Chief complaint Chief Complaint: Laceration - History obtained from History obtained from: Patient - History of Present Illness Timing: Prior to arrival - Additonal information Additional information: 39-year-old female presents to the emergency department for evaluation of a laceration sustained on the left lateral distal tip of the small finger sustained this afternoon when using a mandolin. Patient is right-handed. Reports her tetanus is up-to-date. 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 10/23/18 11/27/18 Temazepam [Restoril] 30 mg PO DAILY PRN 10/23/18 11/27/18 cloNIDine [Catapres] 1 tab PO BID 10/23/18 11/27/18 Cefdinir 300 mg PO BID #20 capsule 03/12/19 Cefdinir 300 mg PO BID #20 capsule 02/23/20 Fluticasone [Flonase] 1 sprays DIGNA BID #1 bottle 02/23/20 Meclizine [Antivert] 25 mg PO Q6H PRN #20 tablet 06/03/20 - Allergies Allergies/Adverse Reactions: Allergies Allergy/AdvReac Type Severity Reaction Status Date / Time amoxicillin trihydrate * Allergy Rash Verified 06/28/20 16:31 [From Augmentin] azithromycin [From Zithromax] Allergy Hives Verified 06/28/20 16:31 Penicillins Allergy Hives Verified 06/28/20 16:31 potassium clavulanate * Allergy Rash Verified 06/28/20 16:31 [From Augmentin] - Social History Does the pt smoke?: No Smoking Status: Never smoker Does the pt drink ETOH?: No Does the pt have substance abuse?: No - Immunizations Immunizations are current?: Yes - POLST Patient has POLST: No PD ED PE EXPANDED - Extremities Extremities: Left finger(s) (Left small finger with 1 cm linear laceration distal tip ulnar side. No nailbed involvement. Flexion extension at DIP against resistance.) Results - Vitals Vitals: Vital Signs - 24 hr 06/28/20 16:29 Temperature 36.8 C Heart Rate 109 H Respiratory 16 Rate Blood Pressure 157/107 H O2 Saturation 97 Oxygen O2 Source Room air Procedures - Laceration (location) left small finger Length in cm: 1 Wound type: Linear Neurovascular status: Sensory intact, Motor intact, Vascular intact Tendon involvement: Tendon intact Anesthesia: Lidocaine 1% Wound Preparation: Chlorhexadine, Irrigated copiously NS Skin layer closure: Size #-0 - enter number (4), Sutures - enter # (3) Other: Patient tolerated well, No complications, Neurovascular intact, Dressing applied, Tetanus UTD Complexity: Simple PD MEDICAL DECISION MAKING - ED course Complexity details: considered differential, d/w patient ED course: simple laceration distal left small finger laceration sustained prior to arrival. tetanus is utd. closed simply with 3 sutures. routine wound care and emergent return precautions discussed Departure - Departure Disposition: 01 Home, Self Care Clinical Impression: Finger laceration Qualifiers: Encounter type: initial encounter Finger: little finger Damage to nail status: without damage Foreign body presence: without foreign body Laterality: left Qualified Code(s): S61.217A - Laceration without foreign body of left little finger without damage to nail, initial encounter Condition: Stable Record reviewed to determine appropriate education?: Yes Instructions: ED Laceration Hand Comments: Your suture should be removed in 7 to 10 days. In 24 hours you may gently wash your hand with warm soap and water, apply antibiotic ointment, and a simple bandage. If at any point you are concerned you are developing infection, return for a second look
[2020-06-28 18:23] VITALS: BP 148/86
== END 2020-06-28 18:23 | disposition home or self-care (01) ==
LOC: ED 16:21
DX: S61.217A Laceration without foreign body of left little finger without damage to nail, initial encounter (principal); W27.4XXA Contact with kitchen utensil, initial encounter; Y93.G1 Activity, food preparation and clean up
CPT/HCPCS: 12001; 99281; 99283; A9270

== ENCOUNTER 2020-07-13 15:30 | Outpatient (CLI) | payer MEDICAID ==
--- NOTE | 2020-07-14 13:22 | Mammography Report ---
BILATERAL DIGITAL SCREENING MAMMOGRAM 3D/2D: 07/13/2020 CLINICAL: Baseline exam. Routine screening. No prior exams were available for comparison. The tissue of both breasts is heterogeneously dense. T his may lower the sensitivity of mammography. There is a round mass in the right breast at 7 o'clock middle depth. There is a focal asymmetry in the left breast at 12 o'clock middle depth. No other significant masses or calcifications are seen in either breast. IMPRESSION: INCOMPLETE: NEEDS ADDITIONAL IMAGING EVALUATION The round mass in the right breast at 7 o'clock middle depth likely represents a cyst and is indeterm inate. Additional views with possible ultrasound are recommended. The focal asymmetry in the left breast at 12 o'clock middle depth likely represents a cyst and is ind eterminate. Additional views with possible ultrasound are recommended. This exam was interpreted at Station ID: [id number]. NOTE: For mammograms, a report in lay terms will be sent to the patient. Approximately 15% of breast malignancies will not be visualized mammographically. In the management of a palpable breast mass, a negative mammogram must not discourage biopsy of a clinically suspicious lesion. Electronically Signed By: Ambreen landin/molly:07/13/2020 16:35:26 ACR BI-RADS Category 0: Incomplete 3340F PARENCHYMAL PATTERN: (D) - The breast(s) demonstrate(s) heterogeneously dense fibroglandular parwilmary dandre. BI-RADS CATEGORY: (0) - 0 Ultrasound [id number] Immediate follow-up LATERALITY: (B)
== END 2020-07-13 15:31 | disposition home or self-care (01) ==
LOC: DI.N 15:30
PROVIDERS: ATTEND Nurse Practitioner
DX: Z12.31 Encounter for screening mammogram for malignant neoplasm of breast (principal); R92.8 Other abnormal and inconclusive findings on diagnostic imaging of breast
CPT/HCPCS: 77063; 77067

== ENCOUNTER 2020-09-16 09:06 | Outpatient (CLI) | payer MEDICAID ==
--- NOTE | 2020-09-19 07:53 | Ultrasound Report ---
LIMITED ULTRASOUND OF RIGHT BREAST: 09/16/2020 CLINICAL: Short term follow up of the right breast, due for bilateral imaging. Comparison is made to exams dated: 09/16/2020 mammogram and 07/13/2020 mammogram - [facility]. Color flow and real-time ultrasound of the right breast 7-9 o'clock region were performed. Hewitt scal e images of the real-time examination were reviewed. There is a 0.8 cm x 0.6 cm x 0.5 cm cyst with a septated internal wall in the right breast at 8 o'virgilio ck middle depth 3 cm from the nipple. This cyst is anechoic with a well-defined boundary and posteri or acoustic enhancement. Color flow imaging demonstrates that there is no vascularity present. There also is a 1.3 cm x 1.1 cm x 0.5 cm irregular cyst in the right breast at 8 o'clock middle depth 4 cm from the nipple. This irregular cyst is anechoic with posterior acoustic enhancement. This co rrelates with mammography findings. Color flow imaging demonstrates that there is no vascularity pre sent. Additional cyst at 7:00 3 cm from the nipple measuring 0.5 cm appears simple. IMPRESSION: PROBABLY BENIGN 1) The 0.8 cm cyst in the right breast at 8 o'clock middle depth is consistent with a complicated cys t or cyst cluster and is probably benign. -Follow-up mammogram and ultrasound in 6 months is recommended. 2) The 1.3 cm irregular cyst in the right breast at 8 o'clock middle depth is consistent with a mildl y complicated cyst and is probably benign. -Follow-up mammogram and ultrasound in 6 months is recommended. Exam findings were conveyed to the patient. Patient is advised to monitor for significant change. This exam was interpreted at Station ID: [id number]. Electronically Signed By: Rafael Ramey M.D. slc/:09/16/2020 15:14:08 Ultrasound BI-RADS: 3 Probably benign BI-RADS CATEGORY: (3) - 3 Mammo and [place] [id number] 6 month follow-up LATERALITY: (B)
--- NOTE | 2020-09-19 07:53 | Mammography Report ---
BILATERAL DIGITAL DIAGNOSTIC MAMMOGRAM 3D/2D: 09/16/2020 CLINICAL: Patient returns for additional imaging over suspected masses in both breasts. Comparison is made to exam dated: 07/13/2020 mammogram - [facility]. The tissue o f both breasts is heterogeneously dense. This may lower the sensitivity of mammography. There is a 1.1 cm round equal density mass with an obscured margin in the right breast at 7 o'clock m iddle depth. This is less prominent. There is a focal asymmetry in the left breast at 12 o'clock middle depth. This is not seen in additi onal views. No other significant masses or calcifications are seen in either breast. IMPRESSION: INCOMPLETE: NEEDS ADDITIONAL IMAGING EVALUATION 1) The 1.1 cm round equal density mass in the right breast at 7 o'clock middle depth likely represent s a cyst and is indeterminate. -A targeted ultrasound is recommended and will immediately follow. 2) Possible focal asymmetry in the left breast at 12 o'clock middle depth. -A second look with targeted ultrasound is recommended and will immediately follow. This exam was interpreted at Station ID: [id number]. NOTE: For mammograms, a report in lay terms will be sent to the patient. Approximately 15% of breast malignancies will not be visualized mammographically. In the management of a palpable breast mass, a negative mammogram must not discourage biopsy of a clinically suspicious lesion. Electronically Signed By: Rafael Ramey M.D. slc/:09/16/2020 11:14:15 ACR BI-RADS Category 0: Incomplete 3340F PARENCHYMAL PATTERN: (D) - The breast(s) demonstrate(s) heterogeneously dense fibroglandular erin amos. BI-RADS CATEGORY: (0) - 0 Ultrasound [id number] Immediate follow-up LATERALITY: (B)
--- NOTE | 2020-09-19 07:53 | Ultrasound Report ---
LIMITED ULTRASOUND OF LEFT BREAST: 09/16/2020 CLINICAL: Short term follow up of the left breast, due for bilateral imaging. Comparison is made to exams dated: 09/16/2020 mammogram, 07/13/2020 mammogram, and 09/16/2020 [facility]. Color flow and real-time ultrasound of the left breast 12 o'clock region were performed. Hewitt scale images of the real-time examination were reviewed. There is a 1 cm x 0.9 cm x 0.7 cm wider than tall oval cyst with a septated internal wall in the left breast at 12 o'clock middle depth 5 cm from the nipple. This oval cyst is hypoechoic with internal echoes and posterior acoustic enhancement. This correlates with mammography findings. This is not we ll seen on diagnostic mammogram additional views. Color flow imaging demonstrates that there is no va scularity present. IMPRESSION: PROBABLY BENIGN The 1 cm oval cyst in the left breast is consistent with a complicated cyst and is probably benign. A follow-up ultrasound in 6 months is recommended to demonstrate stability. Exam findings were conveyed to the patient. Patient is advised to monitor for significant change. This exam was interpreted at Station ID: [id number]. Electronically Signed By: Rafael Ramey M.D. slc/:09/16/2020 15:12:56 Ultrasound BI-RADS: 3 Probably benign BI-RADS CATEGORY: (3) - 3 Ultrasound [id number] 6 month follow-up LATERALITY: (B)
== END 2020-09-16 09:07 | disposition home or self-care (01) ==
LOC: DI 09:06
PROVIDERS: ATTEND Nurse Practitioner
DX: N60.02 Solitary cyst of left breast (principal); N60.11 Diffuse cystic mastopathy of right breast

== ENCOUNTER 2020-10-05 08:00 | Outpatient (CLI) | payer MEDICAID ==
--- NOTE | 2020-10-05 17:31 | XRAY Report ---
PROCEDURE: Wrist 3 View RT INDICATIONS: R WRIST PX TECHNIQUE: 3 views of the wrist were acquired. COMPARISON: None FINDINGS: Bones: No fractures or dislocations. No suspicious bony lesions. Scaphoid view: Scaphoid is grossly intact. Soft tissues: No suspicious soft tissue calcifications. IMPRESSION: No wrist fracture or dislocation. No gross soft tissue abnormality. Reviewed by: García Alvarado MD on 10/05/2020 4:29 PM [facility] Approved by: García Alvarado MD on 10/05/2020 4:29 PM [facility] Station ID: [id number]
== END 2020-10-05 23:59 | disposition home or self-care (01) ==
LOC: DI.N 08:00
PROVIDERS: ATTEND Nurse Practitioner
DX: M25.531 Pain in right wrist (principal)

== ENCOUNTER 2021-02-27 14:22 | Emergency (ER) | payer MEDICAID ==
[2021-02-27 14:35] VITALS: BP 130/87
[2021-02-27 15:16] LABS: BASOPHILS # (AUTO) 0.1 10^3/uL (0.0-0.1); BASOPHILS % (AUTO) 0.5 %; EOSINOPHILS # (AUTO) 0.2 10^3/uL (0.0-0.7); EOSINOPHILS % (AUTO) 1.5 %; HCT - HEMATOCRIT 40.2 % (37.0-47.0); HGB - HEMOGLOBIN 13.2 g/dL (12.0-16.0); LYMPHOCYTES # (AUTO) 2.9 10^3/uL (1.5-3.5); LYMPHOCYTES % (AUTO) 24.5 %; MEAN CORPUSCULAR HEMOGLOBIN 28.5 pg (27.0-31.0); MEAN CORPUSCULAR HGB CONC 32.8 g/dL (32.0-36.0); MEAN CORPUSCULAR VOLUME 86.8 fL (81.0-99.0); MEAN PLATELET VOLUME 8.2 fL (7.9-10.8); MONOCYTES # (AUTO) 0.7 10^3/uL (0.0-1.0); MONOCYTES % (AUTO) 5.7 %; NEUTROPHILS # (AUTO) 7.9 10^3/uL (1.5-6.6); NEUTROPHILS % (AUTO) 67.1 %; PLT - PLATELET COUNT 413 10^3/uL (130-450); RED BLOOD COUNT 4.63 10^6/uL (4.20-5.40); WHITE BLOOD COUNT 11.7 x10^3/uL (4.8-10.8)
[2021-02-27 15:26] LABS: ALBUMIN 4.3 g/dL (3.2-5.5); ALBUMIN/GLOBULIN RATIO 1.4 (1.0-2.2); BILIRUBIN,TOTAL 0.2 mg/dL (0.2-1.0); CREATININE 0.8 mg/dL (0.4-1.0); POTASSIUM 3.6 mmol/L (3.5-5.0); TOTAL PROTEIN 7.4 g/dL (6.7-8.2)
== END 2021-02-27 20:00 | disposition left against medical advice (07) ==
LOC: ED 14:22
DX: Z53.21 Procedure and treatment not carried out due to patient leaving prior to being seen by health care provider (principal)
CPT/HCPCS: 36415; 80053; 83690; 85025

== ENCOUNTER 2021-04-12 16:46 | Emergency (ER) | payer MEDICAID ==
[2021-04-12 16:54] VITALS: BP 149/93
--- NOTE | 2021-04-12 16:58 | ED Physician Documentation ---
PD HPI ALTERED MENTAL STATUS - Stated complaint Stated Complaint: MED REFIL - Chief complaint Chief Complaint: General - History obtained from History obtained from: Patient - History of Present Illness Timing - onset: How many days ago (3) Timing - duration: Days (3) Timing - details: Gradual onset, Still present (increasing) Quality / character: Agitated (feeling anxious, lightheaded, and some nausea. She had run out of her med and the refill was delayed due to needing preauthorization (new thing per patient, as she has been on it for 3 years without needing this, so unexpected). She says pharmacy told her it could take about 3 more days.) Associated symptoms: No: Fever, Headache, Dyspnea, Cough Contributing factors: Known psych illness (depression and anxiety). No: Anticoagulated, Recent med change (no change but has delayed refill of med so out of it for 3 days. She says she does well with the desvenlafexine and had not had any improved symptoms when on venlafexine.), Recent illness Basline status: Alert and oriented X 3, Ambulatory Similar symptoms before: Diagnosis (has had similar in the past when had a short time off of meds.) Recently seen: Not recently seen Review of Systems Constitutional: denies: Fever, Chills Nose: denies: Rhinorrhea / runny nose, Congestion Throat: denies: Sore throat Respiratory: denies: Cough GI: reports: Nausea. denies: Vomiting, Diarrhea Skin: denies: Rash, Lesions Neurologic: reports: Altered mental status (feeling "foggy" thought process and lightheaded.). denies: Focal weakness, Numbness, Near syncope, Headache PD PAST MEDICAL HISTORY - Past Medical History Cardiovascular: None Respiratory: None Neuro: None Endocrine/Autoimmune: None GI: GERD MEDICAL TRANSCRIPTION RADIOLOGY: None : Kidney stones HEENT: None Psych: Depression, Anxiety, Panic attacks, ADD/ADHD, Post traumatic stress disorder Musculoskeletal: None Derm: None - Past Surgical History Past Surgical History: Yes General: Cholecystectomy - Present Medications Home Medications: Ambulatory Orders Medication Instructions Recorded Confirmed Desvenlafaxine Succinate [Pristiq] 1 tab PO DAILY 01/19/17 11/27/18 Sumatriptan Succinate [Imitrex] 6 mg SQ ONCE PRN #2 cartridge 01/19/17 11/26/18 Atomoxetine HCl [Strattera] 1 cap PO DAILY 01/10/18 11/27/18 Esomeprazole Magnesium [Nexium] 40 mg PO DAILY #30 capsule. 10/23/18 11/27/18 Temazepam [Restoril] 30 mg PO DAILY PRN 10/23/18 11/27/18 cloNIDine [Catapres] 1 tab PO BID 10/23/18 11/27/18 Cefdinir 300 mg PO BID #20 capsule 03/12/19 Cefdinir 300 mg PO BID #20 capsule 02/23/20 Fluticasone [Flonase] 1 sprays DIGNA BID #1 bottle 02/23/20 Meclizine [Antivert] 25 mg PO Q6H PRN #20 tablet 06/03/20 Desvenlafaxine Succinate [Pristiq] 100 mg PO DAILY #3 04/12/21 diazePAM [Valium] 5 mg PO BID PRN #10 tablet 04/12/21 - Allergies Allergies/Adverse Reactions: Allergies Allergy/AdvReac Type Severity Reaction Status Date / Time amoxicillin trihydrate * Allergy Rash Verified 04/12/21 16:54 [From Augmentin] azithromycin [From Zithromax] Allergy Hives Verified 04/12/21 16:54 Penicillins Allergy Hives Verified 04/12/21 16:54 potassium clavulanate * Allergy Rash Verified 04/12/21 16:54 [From Augmentin] - Social History Does the pt smoke?: No Smoking Status: Never smoker Does the pt drink ETOH?: No Does the pt have substance abuse?: No - Immunizations Immunizations are current?: Yes - POLST Patient has POLST: No PD ED PE NORMAL - Vitals Vital signs reviewed: Yes - General General: Alert and oriented X 3, No acute distress, Well developed/nourished - Neck Neck: Supple, no meningeal sign, No adenopathy - Cardiac Cardiac: RRR, No murmur - Respiratory Respiratory: Clear bilaterally - Abdomen Abdomen: Soft, Non tender - Derm Derm: Normal color, Warm and dry - Neuro Neuro: Alert and oriented X 3, No motor deficit, Normal speech Results - Vitals Vitals: Oxygen O2 Source Room air PD MEDICAL DECISION MAKING - ED course Complexity details: reviewed old records, considered differential, d/w patient Departure - Departure Disposition: 01 Home, Self Care Clinical Impression: Selective serotonin reuptake inhibitor (SSRI) discontinuation syndrome, Anxiety Condition: Stable Record reviewed to determine appropriate education?: Yes Follow-Up: Eleonora Rubio DO [Primary Care Provider] - Prescriptions: Desvenlafaxine Succinate [Pristiq] 100 mg PO DAILY #3 diazePAM [Valium] 5 mg PO BID PRN #10 tablet PRN Reason: Spasms Comments: Prescription for just 3 tablets of your desvenlafaxine to see if you are able to get that just itz-jx-onmunu expense while awaiting the preauthorization for the full prescription. Take the Diazepam twice daily if needed for anxiety separately. Discharge Date/Time: 04/12/21 17:26
[2021-04-12] MEDS ORDERED: diazePAM 5 MG TABLET PO STA (17:07)
== END 2021-04-12 17:26 | disposition home or self-care (01) ==
LOC: ED 16:46
DX: Z76.0 Encounter for issue of repeat prescription (principal); T43.216A Underdosing of selective serotonin and norepinephrine reuptake inhibitors, initial encounter; R41.82 Altered mental status, unspecified; R11.0 Nausea; F32.9 Major depressive disorder, single episode, unspecified; F41.9 Anxiety disorder, unspecified; F41.0 Panic disorder [episodic paroxysmal anxiety]; F90.9 Attention-deficit hyperactivity disorder, unspecified type; F43.10 Post-traumatic stress disorder, unspecified; Z79.899 Other long term (current) drug therapy
CPT/HCPCS: 99282; 99284; A9270

== ENCOUNTER 2021-06-29 12:25 | Outpatient (CLI) | payer MEDICAID ==
[2021-06-29 17:10] LABS: BILIRUBIN,URINE NEGATIVE (NEGATIVE); CLARITY,URINE CLOUDY (CLEAR); GLUCOSE, URINE (UA) NEGATIVE (NEGATIVE); KETONES,URINE (UA) NEGATIVE (NEGATIVE); LEUKOCYTE ESTERASE, URINE NEGATIVE (NEGATIVE); NITRITE,URINE NEGATIVE (NEGATIVE); OCCULT BLOOD,URINE LARGE (NEGATIVE); PROTEIN,URINE TRACE mg/dL (NEGATIVE); UROBILINOGEN,URINE 0.2 (NORMAL) E.U./dL (NORMAL)
[2021-06-29 17:34] LABS: WBC,URINE 0-3 /HPF (0-5)
[2021-06-29 17:35] LABS: AMORPHOUS SEDIMENT,UR Marked /LPF; BACTERIA,URINE Few /HPF (None Seen); SQUAMOUS EPITHELIAL CELL,UR NONE SEEN (<= Few)
== END 2021-06-29 23:59 | disposition home or self-care (01) ==
LOC: LAB.WC 12:25
PROVIDERS: ATTEND Obstetrics & Gynecology
DX: R10.2 Pelvic and perineal pain (principal)
CPT/HCPCS: 81001; 87086

== ENCOUNTER 2021-07-07 13:09 | Outpatient (CLI) | payer MEDICAID ==
[2021-07-07 18:00] LABS: HCT - HEMATOCRIT 43.7 % (37.0-47.0); HGB - HEMOGLOBIN 13.7 g/dL (12.0-16.0); MEAN CORPUSCULAR HGB CONC 31.4 g/dL (32.0-36.0); MEAN CORPUSCULAR VOLUME 89.4 fL (81.0-99.0); MEAN PLATELET VOLUME 8.9 fL (7.9-10.8); RED BLOOD COUNT 4.89 10^6/uL (4.20-5.40); RED CELL DISTRIBUTION WIDTH 12.6 % (12.0-15.0); WHITE BLOOD COUNT 10.7 x10^3/uL (4.8-10.8)
[2021-07-07 18:15] LABS: ALBUMIN 4.2 g/dL (3.2-5.5); ALBUMIN/GLOBULIN RATIO 1.2 (1.0-2.2); BILIRUBIN,TOTAL 0.5 mg/dL (0.2-1.0); CALCIUM 9.2 mg/dL (8.5-10.3); CREATININE 0.7 mg/dL (0.4-1.0); POTASSIUM 4.2 mmol/L (3.5-5.0); TOTAL PROTEIN 7.7 g/dL (6.7-8.2)
[2021-07-07 18:23] LABS: BILIRUBIN,URINE NEGATIVE (NEGATIVE); GLUCOSE, URINE (UA) NEGATIVE (NEGATIVE); KETONES,URINE (UA) NEGATIVE (NEGATIVE); LEUKOCYTE ESTERASE, URINE TRACE (NEGATIVE); NITRITE,URINE NEGATIVE (NEGATIVE); OCCULT BLOOD,URINE MODERATE (NEGATIVE); PH,URINE 6.5 PH (5.0-7.5); PROTEIN,URINE NEGATIVE (NEGATIVE); UROBILINOGEN,URINE 0.2 (NORMAL) E.U./dL (NORMAL)
[2021-07-07 18:37] LABS: CLARITY,URINE CLEAR (CLEAR)
[2021-07-07 18:51] LABS: BACTERIA,URINE Few /HPF (None Seen); RBC,URINE 0-5 /HPF (0-5); SQUAMOUS EPITHELIAL CELL,UR FEW Squamous (<= Few)
== END 2021-07-07 13:10 | disposition home or self-care (01) ==
LOC: LAB.N 13:09
PROVIDERS: ATTEND Obstetrics & Gynecology
DX: Z01.812 Encounter for preprocedural laboratory examination (principal); R10.2 Pelvic and perineal pain; R31.9 Hematuria, unspecified
CPT/HCPCS: 36415; 80053; 81001; 85027; 87086

== ENCOUNTER 2021-07-17 18:23 | Emergency (ER) | payer MEDICAID ==
[2021-07-17 18:32] VITALS: BP 131/95
--- NOTE | 2021-07-17 19:03 | XRAY Report ---
PROCEDURE: Wrist 4 View LT INDICATIONS: Trauma TECHNIQUE: 4 views of the wrist were acquired. COMPARISON: None FINDINGS: Bones: Small bone fragment noted dorsal to the carpal bones compatible with triquetral fracture. No s uspicious bony lesions. Scaphoid view: Scaphoid is intact. Soft tissues: No suspicious soft tissue calcifications. IMPRESSION: Triquetral fracture. Reviewed by: Aide Mitchell MD, PhD on 07/17/2021 7:02 PM PST Approved by: Aide Mitchell MD, PhD on 07/17/2021 7:02 PM PST Station ID: [id number]
[2021-07-17] MEDS ORDERED: HYDROcod/ACET 5/325 Prepack 4 PO STA (19:46)
--- NOTE | 2021-07-17 19:47 | ED Physician Documentation ---
PD HPI UPPER EXT INJURY - Stated complaint Stated Complaint: WRIST INJURY - Chief complaint Chief Complaint: Ext Problem - History obtained from History obtained from: Patient - History of Present Illness Location: Left (Simple trip and fall with a FOOSH onto the nondominant left wrist with severe pain 2 days ago. 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 : Kidney stones HEENT: None Psych: Depression, Anxiety, Panic attacks, ADD/ADHD, Post traumatic stress disorder Musculoskeletal: None Derm: None - Past Surgical History Past Surgical History: Yes General: Cholecystectomy - Present Medications Home Medications: Ambulatory Orders Medication Instructions Recorded Confirmed Desvenlafaxine Succinate [Pristiq] 1 tab PO DAILY 01/19/17 11/27/18 Sumatriptan Succinate [Imitrex] 6 mg SQ ONCE PRN #2 cartridge 01/19/17 11/26/18 Atomoxetine HCl [Strattera] 1 cap PO DAILY 01/10/18 11/27/18 Esomeprazole Magnesium [Nexium] 40 mg PO DAILY #30 capsule.dr 10/23/18 11/27/18 Temazepam [Restoril] 30 mg PO DAILY PRN 10/23/18 11/27/18 cloNIDine [Catapres] 1 tab PO BID 10/23/18 11/27/18 Cefdinir 300 mg PO BID #20 capsule 03/12/19 Cefdinir 300 mg PO BID #20 capsule 02/23/20 Fluticasone [Flonase] 1 sprays DIGNA BID #1 bottle 02/23/20 Meclizine [Antivert] 25 mg PO Q6H PRN #20 tablet 06/03/20 Desvenlafaxine Succinate [Pristiq] 100 mg PO DAILY #3 04/12/21 diazePAM [Valium] 5 mg PO BID PRN #10 tablet 04/12/21 HYDROcod/ACETAM 5/325 [[place] 5/325] 1 - 2 tab PO Q6H PRN #10 tablet 07/17/21 - Allergies Allergies/Adverse Reactions: Allergies Allergy/AdvReac Type Severity Reaction Status Date / Time amoxicillin trihydrate * Allergy Rash Verified 04/12/21 16:54 [From Augmentin] azithromycin [From Zithromax] Allergy Hives Verified 04/12/21 16:54 Penicillins Allergy Hives Verified 04/12/21 16:54 potassium clavulanate * Allergy Rash Verified 04/12/21 16:54 [From Augmentin] - Social History Does the pt smoke?: No Smoking Status: Never smoker Does the pt drink ETOH?: No Does the pt have substance abuse?: No - Immunizations Immunizations are current?: Yes - POLST Patient has POLST: No PD ED PE NORMAL - Vitals Vital signs reviewed: Yes - General General: Alert and oriented X 3, No acute distress - Extremities Extremities: Other (Kind of diffusely tender over the dorsal wrist without deformity. Severely range limited range of motion due to pain. No neurovascular compromise in the fingers.) - Neuro Neuro: Alert and oriented X 3, Normal speech Results - Vitals Vitals: Vital Signs - 24 hr 07/17/21 18:29 Temperature 36.5 C Heart Rate 99 Respiratory 16 Rate Blood Pressure 131/95 H O2 Saturation 97 Oxygen O2 Source Room air - Rads (name of study) 4 view x-ray left wrist Radiology: EMP read contemporaneously (Avulsion fracture of the triquetral bone) Procedures - Splint (location) Left upper extremity Splint applied by: Physician Type of splint: Fiberglass, Short arm, Volar cock up Other: Patient tolerated well, No complications, Neurovascular intact Departure - Departure Disposition: 01 Home, Self Care Clinical Impression: Triquetral chip fracture Qualifiers: Encounter type: initial encounter Fracture type: closed Laterality: left Qualified Code(s): S62.112A - Displaced fracture of triquetrum [cuneiform] bone, left wrist, initial encounter for closed fracture Condition: Good Record reviewed to determine appropriate education?: Yes Instructions: ED Fx Wrist General Follow-Up: Guy Solis MD [Provider Admit Priv/Credential] - Prescriptions: HYDROcod/ACETAM 5/325 [[place] 5/325] 1 - 2 tab PO Q6H PRN #10 tablet PRN Reason: Pain Comments: Follow-up with the orthopedist in a week or so, call his office tomorrow for an appointment. Return for new or worsening symptoms. Keep the splint on and dry until follow-up. Prescription sent electronically to [facility] in [place] I am prescribing a short course of narcotic pain medication for you. These are potentially dangerous and addictive medications that should be used carefully. These medications may constipate you. Take an jqky-xbk-osfjdjb stool softener (docusate) twice daily with plenty of water while taking these medications. If you go 24 hours without a bowel movement, take oijd-lrp-bdjgnem miralax, per package instructions. Do not drink or drive while taking these medications. If you received narcotic or sedating medications while in the emergency department, do not drive for 24 hours. Store this medication in a safe, secure place and out of reach of children. It is a violation of federal law to give or sell this medication to another person or to use in a manner other than prescribed. The ED will not refill narcotic prescriptions, including prescriptions lost or stolen. To dispose of unwanted medications: 1. [facility] at [address] in [place] has a medication drop box. They accept prescription medications (in pill form) Saturday through Saturday 9:00 a.m. to 5:00 p.m. 2. The [facility] [employer] accepts prescription medications (in pill form only) for disposal year round. Call for more information. 3. Contact the [facility] for the next [facility] sponsored prescription drug collection event. , [phone], or [phone]; Note that many narcotic pain relievers also contain Tylenol/acetaminophen. Please ensure that your total dose of acetaminophen from all sources does not exceed 3 g (3000 mg) per day.
== END 2021-07-17 20:00 | disposition home or self-care (01) ==
LOC: ED 18:23
DX: S62.112A Displaced fracture of triquetrum [cuneiform] bone, left wrist, initial encounter for closed fracture (principal); W01.0XXA Fall on same level from slipping, tripping and stumbling without subsequent striking against object, initial encounter; Y92.9 Unspecified place or not applicable
CPT/HCPCS: 29125; 99283

== ENCOUNTER 2021-08-22 09:00 | Outpatient (CLI) | payer MEDICAID ==
--- NOTE | 2021-08-22 13:08 | XRAY Report ---
PROCEDURE: Wrist 3 View LT INDICATIONS: NONDISPLACED FX OF TRIQUETRUM OF L WRIST TECHNIQUE: 4 views of the wrist were acquired. COMPARISON: 4 view X-ray of the left wrist, 07/17/2021. FINDINGS: Bones: No fractures or dislocations. No suspicious bony lesions. The fracture fragment in the dors al aspect of the wrist is less conspicuous, consistent with healing. Soft tissues: No suspicious soft tissue calcifications. IMPRESSION: Healing triquetral fracture. Reviewed by: Jenna Vargas MD on 08/22/2021 1:07 PM PST Approved by: Jenna Vargas MD on 08/22/2021 1:07 PM PST Station ID: [id number]
== END 2021-08-22 23:59 | disposition home or self-care (01) ==
LOC: DI.N 09:00
PROVIDERS: ATTEND Orthopaedic Surgery
DX: S62.115D Nondisplaced fracture of triquetrum [cuneiform] bone, left wrist, subsequent encounter for fracture with routine healing (principal)

== ENCOUNTER 2021-09-08 07:32 | Outpatient (CLI) | payer MEDICAID ==
--- NOTE | 2021-09-11 15:48 | Ultrasound Report ---
LIMITED ULTRASOUND OF LEFT BREAST: 09/08/2021 CLINICAL: Short term follow up for bilateral breasts. Comparison is made to exam dated: 09/16/2020 ultrasound - [facility]. Color flow ultrasound of the left breast 12 o'clock region was performed. Hewitt scale images of the real-time examination were reviewed. There is a benign 1 cm x 0.9 cm x 0.7 cm wider than tall oval cyst with a septated internal wall in t he left breast at 12 o'clock middle depth 5 cm from the nipple. This oval cyst is hypoechoic with in ternal echoes and posterior acoustic enhancement. This abnormality is decreased in size and correlat es with mammography findings. Color flow imaging demonstrates that there is no vascularity present. IMPRESSION: BENIGN There is no sonographic evidence of malignancy. The 1 cm x 0.9 cm x 0.7 cm wider than tall oval cyst in the left breast is consistent with a complica kayleen cyst and is benign. Return to annual mammogram screening schedule is recommended. This exam was interpreted at Station ID: [id number]. Electronically Signed By: Zay Arreguin acr/:09/08/2021 09:55:15 Ultrasound BI-RADS: 2 Benign BI-RADS CATEGORY: (2) - 2 Mammogram [id number] return to screening LATERALITY: (B)
--- NOTE | 2021-09-11 15:48 | Ultrasound Report ---
LIMITED ULTRASOUND OF RIGHT BREAST: 09/08/2021 CLINICAL: Short term follow up for bilateral breasts. Comparison is made to exam dated: 09/16/2020 ultrasound - [facility]. Color flow ultrasound of the right breast 8 o'clock region was performed. Hewitt scale images of the r eal-time examination were reviewed. There is a benign 0.4 cm x 0.4 cm x 0.3 cm cyst with a septated internal wall in the right breast at 8 o'clock middle depth 3 cm from the nipple. This cyst is anechoic with a well-defined boundary and posterior acoustic enhancement. This abnormality is decreased in size. Color flow imaging demonstra corine that there is no vascularity present. There also is a benign 1.2 cm x 0.9 cm x 0.7 cm irregular cyst in the right breast at 8 o'clock middl e depth 4 cm from the nipple. This irregular cyst is anechoic with posterior acoustic enhancement. This abnormality is decreased in size and correlates with mammography findings. Color flow imaging d emonstrates that there is no vascularity present. IMPRESSION: BENIGN There is no sonographic evidence of malignancy. The 0.4 cm x 0.4 cm x 0.3 cm cyst in the right breast at 8 o'clock middle depth is consistent with a complicated cyst and is benign. The 1.2 cm x 0.9 cm x 0.7 cm irregular cyst in the right breast at 8 o'clock middle depth is consiste nt with a complicated cyst and is benign. Return to annual mammogram screening schedule is recommended. This exam was interpreted at Station ID: [id number]. Electronically Signed By: Zay Arreguin acr/:09/08/2021 09:54:16 Ultrasound BI-RADS: 2 Benign BI-RADS CATEGORY: (2) - 2 Mammogram [id number] return to screening LATERALITY: (B)
--- NOTE | 2021-09-11 15:48 | Mammography Report ---
BILATERAL DIGITAL DIAGNOSTIC MAMMOGRAM 3D/2D: 09/08/2021 CLINICAL: Patient returns for a 6 month follow up of the right breast, due for bilateral exam. Jonel huston returns for a 6 month follow up US of the left breast. Comparison is made to exams dated: 09/16/2020 ultrasound, 09/16/2020 ultrasound, 09/16/2020 mammogram, and 07/13/2020 mammogram - [facility]. The tissue of both breasts is heterogeneous ly dense. This may lower the sensitivity of mammography. There is a stable 1.1 cm round equal density mass with an obscured margin in the right breast at 7 o' clock middle depth. There is a stable focal asymmetry in the left breast at 12 o'clock middle depth. No other significant masses or calcifications are seen in either breast. IMPRESSION: INCOMPLETE: NEEDS ADDITIONAL IMAGING EVALUATION The stable 1.1 cm round equal density mass in the right breast at 7 o'clock middle depth likely repre sents a cyst and is indeterminate. An ultrasound is recommended. The stable focal asymmetry in the left breast at 12 o'clock middle depth is indeterminate. An ultras ound is recommended. US will be performed and dictated separately. This exam was interpreted at Station ID: [id number]. NOTE: For mammograms, a report in lay terms will be sent to the patient. Approximately 15% of breast malignancies will not be visualized mammographically. In the management of a palpable breast mass, a negative mammogram must not discourage biopsy of a clinically suspicious lesion. Electronically Signed By: Zay Arreguin acr/:09/08/2021 09:00:45 ACR BI-RADS Category 0: Incomplete 3340F PARENCHYMAL PATTERN: (D) - The breast(s) demonstrate(s) heterogeneously dense fibroglandular erin amos. BI-RADS CATEGORY: (0) - 0 Ultrasound [id number] Immediate follow-up LATERALITY: (B)
== END 2021-09-08 07:33 | disposition home or self-care (01) ==
LOC: DI 07:32
PROVIDERS: ATTEND Family Medicine
DX: N60.11 Diffuse cystic mastopathy of right breast (principal); N60.02 Solitary cyst of left breast

== ENCOUNTER 2021-10-26 14:40 | Outpatient (CLI) | payer MEDICAID ==
--- NOTE | 2021-10-26 16:43 | XRAY Report ---
PROCEDURE: Wrist 3 View LT INDICATIONS: NONDISPLACED FX OF TRIQUETRUM, LEFT WRIST TECHNIQUE: 3 views of the wrist were acquired. COMPARISON: X-ray wrist 08/22/2021 FINDINGS: Bones: Previous triquetral fracture demonstrates continued interval healing with stable alignment. No new fractures are identified. No suspicious bony lesions. Soft tissues: No suspicious soft tissue calcifications. IMPRESSION: Continued interval healing of triquetral fracture. Reviewed by: Bianca Farris MD on 10/26/2021 4:42 PM PST Approved by: Bianca Farris MD on 10/26/2021 4:42 PM PST Station ID: [id number]
== END 2021-10-26 14:41 | disposition home or self-care (01) ==
LOC: DI.N 14:40
PROVIDERS: ATTEND Physician Assistant
DX: S62.115D Nondisplaced fracture of triquetrum [cuneiform] bone, left wrist, subsequent encounter for fracture with routine healing (principal)

== ENCOUNTER 2021-11-27 14:18 | Outpatient (CLI) | payer MEDICAID ==
[2021-11-27 15:13] LABS: HCG UR QUAL NEGATIVE
== END 2021-11-27 14:19 | disposition home or self-care (01) ==
LOC: LAB 14:18
PROVIDERS: ATTEND Obstetrics & Gynecology
DX: Z01.812 Encounter for preprocedural laboratory examination (principal); D06.9 Carcinoma in situ of cervix, unspecified
CPT/HCPCS: 81025; 86850; 86900; 86901

== ENCOUNTER 2021-11-28 06:23 | Day surgery (SDC) | payer MEDICAID ==
[~2021-11-28 06:23] MED LIST: CEFAZOLIN SODIUM IN 0.9 % NACL 2 GM/50 ML BAG IV ONE
[2021-11-28] MEDS: ACETAMINOPHEN 500 MG TABLET PO ONE ×2 (06:35→06:40)
[2021-11-28] MEDS: GABAPENTIN 400 MG CAPSULE ONE ×2 (06:35→06:40)
[2021-11-28] MEDS: CELECOXIB 100 MG CAPSULE PO ONE ×2 (06:35→06:40)
[2021-11-28] MEDS: PHENAZOPYRIDINE 100 MG TABLET PO ONE ×2 (06:35→06:40)
[2021-11-28 06:37] LABS: HCG UR QUAL NEGATIVE
[2021-11-28] MEDS ORDERED: LACTATED RINGERS 1,000 ML IV ONE (06:55)
[2021-11-28] MEDS ORDERED: MIDAZOLAM 2 MG/2 ML VIAL ONE (07:09)
[2021-11-28] MEDS ORDERED: fentaNYL 100 MCG/2 ML VIAL ONE ×3 (07:09→11:29)
[2021-11-28] MEDS ORDERED: ONDANSETRON 4 MG/2 ML VIAL ONE (07:10)
[2021-11-28] MEDS ORDERED: DEXAMETHASONE 4 MG/ML VIAL ONE (07:10)
[2021-11-28] MEDS ORDERED: PROPOFOL 200 MG/20 ML VIAL IVP ONE (07:10)
[2021-11-28] MEDS ORDERED: LIDOCAINE-MPF 2% 5 ML VIAL ONE (07:10)
[2021-11-28] MEDS ORDERED: ROCURONIUM 50 MG/5 ML VIAL ONE ×2 (07:10→08:38)
--- NOTE | 2021-11-28 07:15 | ANESTHESIA ---
Pre-Anesthesia VS, & Labs - Diagnosis severe cervical dysplasia - Procedure total laparoscopic hysterectomy, cystectomy Vital Signs: Temp Pulse Resp BP Pulse Ox 36.7 C 88 18 120/83 H 96 11/28/21 06:39 11/28/21 06:39 11/28/21 06:39 11/28/21 06:39 11/28/21 06:39 Height: 5 ft 3 in Weight (kg): 115 kg Body Mass Index: 44.9 BMI Classification: Morbidly Obese - NPO >8 hours - Is Patient ?: No Home Medications and Allergies Home Medications: Ambulatory Orders Omeprazole 40 mg PO DAILY 11/16/21 hydroCHLOROthiazide [Hydrodiuril] 25 mg PO DAILY 11/16/21 cloNIDine [Catapres] 0.1 mg PO BID 10/23/18 Desvenlafaxine Succinate [Pristiq] 50 mg PO DAILY 07/17/21 Omeprazole 40 mg PO DAILY 11/16/21 hydroCHLOROthiazide [Hydrodiuril] 25 mg PO DAILY 11/16/21 Allergies/Adverse Reactions: Allergies Allergy/AdvReac Type Severity Reaction Status Date / Time amoxicillin trihydrate * Allergy Rash Verified 04/12/21 16:54 [From Augmentin] azithromycin [From Zithromax] Allergy Hives Verified 04/12/21 16:54 Penicillins Allergy Hives Verified 04/12/21 16:54 potassium clavulanate * Allergy Rash Verified 04/12/21 16:54 [From Augmentin] hydromorphone [From Dilaudid] AdvReac Emesis Verified 11/16/21 11:57 Anes History & Medical History - Anesthetic History Anesthesia Complications: reports: No previous complications - Medical History Cardiovascular: reports: Hypertension Pulmonary: reports: None Gastrointestinal: reports: GERD (controlled with medication), Other (IBS) Urinary: reports: Kidney stones Neuro: reports: None Musculoskeletal: reports: None Endocrine/Autoimmune: reports: None Blood Disorders: reports: None Skin: reports: None Smoking Status: Current every day smoker (vapes. 1/2 pack per day for 20 years) Psychosocial: reports: Depression, Anxiety - Surgical History General: reports: Cholecystectomy Eyes Ears Nose Throat (EENT): reports: Cataracts Urologic: reports: Kidney stents, Ureterolithotomy (stones) Exam General: Alert, Oriented x3, Cooperative, No acute distress Dental: WNL Mouth Openin Fingerbreadth Neck Mobility: Normal Mallampati classification: III Thyromental Distance: 4-6 cm Respiratory: Lungs clear, Normal breath sounds, No respiratory distress, No accessory muscle use Cardiovascular: Regular rate, Normal S1, Normal S2, No murmurs Mental/Cognitive Status: Alert/Oriented X3, Normal for patient Plan Anesthesia Type: General Consent for Procedure(s) Verified and Reviewed: Yes Code Status: Attempt Resuscitation ASA classification: 3-Severe systemic disease Is this case an emergency?: No
[2021-11-28] MEDS ORDERED: ATROPINE ABBOJECT 1 MG/10 ML SYRINGE IVP PRN (07:20)
[2021-11-28] MEDS ORDERED: NALOXONE 0.4 MG/ML VIAL IVP PRN (07:20)
[2021-11-28] MEDS ORDERED: MORPHINE 2 MG/ML CARPUJECT IVP PRN (07:20)
[2021-11-28] MEDS ORDERED: fentaNYL 100 MCG/2 ML VIAL IVP PRN (07:20)
[2021-11-28] MEDS ORDERED: ONDANSETRON 4 MG/2 ML VIAL IVP PRN (07:20)
[2021-11-28] MEDS ORDERED: METHYLENE BLUE 0.5% 50 MG/10 ML AMPULE ONE (07:25)
[2021-11-28] MEDS ORDERED: LIDOCAINE JELLY 2% 6 ML JEL.PF.APP ONE (07:25)
[2021-11-28] MEDS ORDERED: LIDOCAINE MPF 2%-EPI 1:200000 20 ML VIAL ONE (07:25)
[2021-11-28] MEDS ORDERED: BUPIVACAINE 0.5% PF 10 ML VIAL ONE ×2 (07:25)
[2021-11-28] MEDS ORDERED: LACTATED RINGERS 1,000 ML IV SCH (08:00)
[2021-11-28] MEDS ORDERED: METHYLENE BLUE 0.5% 50 MG/10 ML AMPULE IR ONE (08:55)
[2021-11-28] MEDS ORDERED: LIDOCAINE JELLY 2% 6 ML JEL.PF.APP UR ONE ×2 (08:56)
[2021-11-28] MEDS ORDERED: BUPIVACAINE 0.5% PF 10 ML VIAL SUBQ ONE ×2 (08:57)
[2021-11-28] MEDS ORDERED: LIDOCAINE MPF 2%-EPI 1:200000 20 ML VIAL SUBQ ONE ×2 (08:58)
[2021-11-28] MEDS ORDERED: SUGAMMADEX 200 MG/2 ML VIAL IVP ONE (10:52)
[2021-11-28] MEDS ORDERED: SIMETHICONE CHEW 80 MG TABLET PO PRN (11:24)
[2021-11-28] MEDS ORDERED: SCOPOLAMINE PATCH TOP PRN (11:24)
[2021-11-28] MEDS ORDERED: ONDANSETRON ODT 4 MG TABLET TL PRN (11:24)
[2021-11-28] MEDS ORDERED: METOCLOPRAMIDE 10 MG/2 ML VIAL IVP PRN (11:26)
--- NOTE | 2021-11-28 11:36 | OPERATIVE REPORT ---
Operative Report - General Procedure Date: 11/28/21 Planned Procedure: Total laparoscopic hysterectomy, bilateral salpingectomy, cystoscopy Pre-Op Diagnosis: Severe cervical dysplasia Procedure Performed: Total laparoscopic hysterectomy, bilateral salpingectomy, cystoscopy Post Op Diagnosis: Same - Procedure Note Primary Surgeon: Mary Carbone MD Secondary Surgeon: Freddie Hernandez MD Anesthesia Provider: Edu Miranda CRNA Anesthesia Technique: General ET tube Pathology: uterus with cervix, bilateral fallopian tubes IV Fluids (mL): 1,600 Estimated Blood Loss (mL): 100 Urine Output (mL): 355 Indications: Patient is a 41 yo with severe cervical dysplasia. Desires definitive management with Findings: Normal appearing uterus, fallopian tubes, and ovaries. Bilateral ureteral jets noted on cystoscopy post procedure and normal scan of bladder. Complications: Patient is a 40 yo here for laparoscopic hysterectomy, bilateral salpingectomy, and cytoscopy. She was last seen in clinic for LEEP and Mirena IUD insertion. Pathology returned positive for EMERY-3 and EMERY-2. Patient was seen on 07/10/21 for colposcopy for pap showing high grade TED suspcious for squamous cell carcinoma. Patient was seen on 06/29/21 for abdominal pain. At that time, she reported that cramping has been present since prior to 06/22/21 Has had an IUD in place since 2017. Had an LGSIL pap in 2017 but did not have any follow-up. Occasionally has intermittent spotting. No dyspareunia, had IC more than 2 wee ks ago. No recent spotting. Pap collected 06/29/21 with HGSIL c/f carcinoma. Colposcopy was performed on 07/10/21. Path returned with EMERY-2 in 3 biopsy and ECC. heavy bleeding during procedure. IUD inadvertantly removed. Desired replacement of Mirena at time of LEEP and she has pain and DUB wihtout Mirena. No changes in health hx since time of prior exam. Patient desires hysterectomy given advanced cervical dysplasia. - Other Other Information/Narrative: Risks benefits and alternatives of the procedure were reviewed. Consent was again confirmed. Patient was brought to the operating room and underwent general anesthesia. She was placed in dorsal lithotomy position with legs resting in yellowfin stirrups. SCDs were in place and activated. Cefazolin 2 g IV was administered prior to start of procedure. She was prepped and draped in the usual sterile fashion. Surgical timeout was performed. Bimanual exam was performed. Sterile speculum was placed. The cervix was visualized and a total of 20 cc of 2% lidocaine and 0.25% bupivicaine with epinephrine was injected into the uterosacral ligaments. The cervical os was serially dilated with Hegar dilators to accommodate the uterine manipulator. The Operating Room Aide uterine manipulator was placed, confirming that the cup was flush with the vaginal fornices. It was attached to the [employer] uterine positioning system. Solomon catheter was placed, the bladder was drained, and the bladder was then back filled with 50 cc of dilute methylene blue. The catheter was then clamped. The base of the umbilicus was anesthetized with intradermal injection of 0.5% Marcaine. A 5 mm skin incision was made with a scalpel. A 5 mm blunt trocar was inserted under direct visualization using Visiport. Once the port was confirmed to be placed intraperitoneally, the abdomen was insufflated to 15 mmHg with CO2 gas Exploration of the abdomen and pelvis was confirmed that no injury was sustained with placement of the trocar. Two additional 5 mm ports were placed in the right and left lower quadrants, taking care to avoid the epigastric arteries, while under direct visualization via laparoscopic guidance. The abdomen was explored with the laparoscope, with findings as noted. The left fallopian tube was grasped and elevated at the fimbriated end. The underlying mesosalpinx was sealed and resected to the insertion point onthe uterine cornua using the Ligasure device. The round ligament on the left aspect of the uterus was sealed/transected/and divided. The uterine ovarian ligament w as transected using the LigaSure bipolar device. The bladder was overly full at this point and the catheter was unclamped to improve visualization. A bladder flap was mobilized by dividing the round ligaments using the bipolar cutting forceps, and the peritoneum on the vesicouterine fold was incised to mobilize the bladder. Once the colpotomy ring was skeletonized and in position, the uterine arteries were sealed using the bipolar forceps at the level of the colpotomy ring. This was repeated on the right aspect of the uterus in the same manner. The bladder dissection was performed over the colpotomy ring. Colpotomy was performed using Harmonic scalpel, resulting in separation of the uterus. The uterus was then delivered through the vagina. Attention was then turned to the vaginal cuff closure. The abdomen was de- sufflated. The edges of the cuff were grasped with long Allis clamps. The cuff was closed in a series of figure of 8 sutures using 0-vicryl. The abdomen was insufflated. Closure of the cuff was airtight. Good hemostasis was noted. At no time was spillage of methylene blue noted in the surgical field. The vaginal cuff was visualized internally and noted to have good hemostasis. Surgicel was placed over the left sidewall pedicles for additional reinforcement of hemostasis. The abdomen was partially desufflated. Pedicles were observed under decreased pressure and good hemostasis was again confirmed. Abdomen was then completely desufflated. All instruments were removed from the abdomen. Skin was closed with interrupted subcuticular stitches using 4-0 Monocryl. Dermabond was applied over the suture sites. We then turned our attention to the cystoscopic portion of the procedure. Solomon catheter was removed and the cystoscope was inserted. Bladder was instilled with NS. A survey of the bladder showed no trauma or presence of suture in the bladder topography. Patient had been pretreated with pyridium. Vigorous ureteral jets were observed bilaterally. Cystoscope was removed after bladder was drained. Solomon catheter was replaced. The final sponge needle and instrument counts were correct at completion of the procedure patient was awakened taken to the postanesthesia care unit in stable condition. Dr. Hernandez assisted with suturing, retraction, and completion of their side of the hysterectomy.
[2021-11-28] MEDS: HYDROmorphone 1 MG/ML CARPUJECT IVP PRN ×3 (11:47→12:09)
[2021-11-28] MEDS ORDERED: HYDROmorphone 1 MG/ML CARPUJECT ONE ×2 (11:51→12:16)
[2021-11-28] MEDS ORDERED: ACETAMINOPHEN 1,000 MG/100 ML 100 ML IV ONE (11:54)
--- NOTE | 2021-11-28 13:13 | ANESTHESIA POST OP EVALUATION ---
Anesthesia Post Eval - Post Anesthesia Eval Vitals: Last Vital Signs Temp 36.7 C 11/28/21 12:34 Pulse 95 11/28/21 12:34 Resp 16 11/28/21 12:34 BP 136/83 H 11/28/21 12:34 Pulse Ox 96 11/28/21 12:34 CV Function Including HR & BP: Stable Pain Control: Satisfactory Nausea & Vomiting: Negative Mental Status: Baseline Respiratory Status: Airway Patent Hydration Status: Satisfactory Anesthesia Complications: None
[2021-11-28] MEDS: ACETAMINOPHEN 500 MG TABLET PO SCH ×2 (14:00→21:54)
[2021-11-28] MEDS: LACTATED RINGERS 1,000 ML IV SCH (14:32)
[2021-11-28] MEDS: KETOROLAC 30 MG/ML VIAL IVP SCH ×2 (15:01→21:18)
[2021-11-28] MEDS ORDERED: NICOTINE 14 MG PATCH TOP PRN (16:10)
[2021-11-28] MEDS: FLUTICASONE NASAL SPRAY NAS PRN (18:59)
[2021-11-28] MEDS: oxyCODONE 5 MG TABLET PO PRN (20:27)
[2021-11-28] MEDS ORDERED: PANTOPRAZOLE 40 MG TABLET PO SCH (21:00)
[2021-11-28] MEDS ORDERED: CLONIDINE HCL 0.1 MG PO SCH ×2 (21:00)
[2021-11-28] MEDS ORDERED: DESVENLAFAXINE 50 MG PO SCH (21:00)
[2021-11-28] MEDS: DOCUSATE SODIUM 100 MG CAPSULE PO SCH (21:15)
[2021-11-29] MEDS: LACTATED RINGERS 1,000 ML IV SCH (00:19)
[2021-11-29] MEDS: oxyCODONE 5 MG TABLET PO PRN ×3 (00:23→10:51)
[2021-11-29] MEDS: KETOROLAC 30 MG/ML VIAL IVP SCH ×2 (03:39→09:30)
[2021-11-29] MEDS: ACETAMINOPHEN 500 MG TABLET PO SCH (05:42)
[2021-11-29 05:47] LABS: BASOPHILS % (AUTO) 0.2 %; EOSINOPHILS # (AUTO) 0.1 10^3/uL (0.0-0.7); EOSINOPHILS % (AUTO) 0.4 %; HCT - HEMATOCRIT 35.2 % (37.0-47.0); HGB - HEMOGLOBIN 11.6 g/dL (12.0-16.0); LYMPHOCYTES % (AUTO) 13.3 %; MEAN CORPUSCULAR HEMOGLOBIN 28.3 pg (27.0-31.0); MEAN CORPUSCULAR VOLUME 85.9 fL (81.0-99.0); MEAN PLATELET VOLUME 8.5 fL (7.9-10.8); MONOCYTES % (AUTO) 6.6 %; NEUTROPHILS # (AUTO) 11.8 10^3/uL (1.5-6.6); NEUTROPHILS % (AUTO) 78.7 %; PLT - PLATELET COUNT 343 10^3/uL (130-450); RED CELL DISTRIBUTION WIDTH 12.8 % (12.0-15.0); WHITE BLOOD COUNT 14.9 x10^3/uL (4.8-10.8)
[2021-11-29 08:33] VITALS: BP 108/57
[2021-11-29] MEDS ORDERED: ENOXAPARIN 40 MG/0.4 ML SYRINGE SUBQ SCH (09:00)
[2021-11-29] MEDS ORDERED: hydroCHLOROthiazide 25 MG TABLET PO SCH (09:00)
[2021-11-29] MEDS: FLUTICASONE NASAL SPRAY NAS PRN (09:31)
[2021-11-29] MEDS: DOCUSATE SODIUM 100 MG CAPSULE PO SCH (09:31)
== END 2021-11-29 11:00 | disposition home or self-care (01) ==
LOC: SDS 06:23 → FBP 10:05 → SDS 11-29 11:00
PROVIDERS: ATTEND Obstetrics & Gynecology
PROC: 0UT74ZZ Resection of Bilateral Fallopian Tubes, Percutaneous Endoscopic Approach (ICD-10-PCS; 2021-11-28)
PROC: 0UT94ZZ Resection of Uterus, Percutaneous Endoscopic Approach (ICD-10-PCS; principal; 2021-11-28 07:30)
DX: D06.9 Carcinoma in situ of cervix, unspecified (principal); N80.0 Endometriosis of uterus; D25.0 Submucous leiomyoma of uterus; I10 Essential (primary) hypertension; E66.01 Morbid (severe) obesity due to excess calories; F17.290 Nicotine dependence, other tobacco product, uncomplicated; Z68.41 Body mass index [BMI] 40.0-44.9, adult; Z79.51 Long term (current) use of inhaled steroids; Z79.899 Other long term (current) drug therapy
CPT/HCPCS: 36415; 58571; 81025; 85025; A9270; J0131; J0690; J1170; J1650; J2765; J3490; J7120; Q0162

== ENCOUNTER 2021-12-12 08:19 | Emergency (ER) | payer MEDICAID ==
[2021-12-12 08:47] LABS: BASOPHILS % (AUTO) 0.3 %; EOSINOPHILS # (AUTO) 0.3 10^3/uL (0.0-0.7); EOSINOPHILS % (AUTO) 2.5 %; HCT - HEMATOCRIT 36.4 % (37.0-47.0); LYMPHOCYTES % (AUTO) 15.2 %; MEAN CORPUSCULAR HEMOGLOBIN 27.8 pg (27.0-31.0); MEAN CORPUSCULAR VOLUME 84.3 fL (81.0-99.0); MEAN PLATELET VOLUME 8.3 fL (7.9-10.8); MONOCYTES # (AUTO) 0.7 10^3/uL (0.0-1.0); MONOCYTES % (AUTO) 5.8 %; NEUTROPHILS # (AUTO) 9.7 10^3/uL (1.5-6.6); NEUTROPHILS % (AUTO) 75.2 %; PLT - PLATELET COUNT 403 10^3/uL (130-450); RED BLOOD COUNT 4.32 10^6/uL (4.20-5.40); RED CELL DISTRIBUTION WIDTH 12.7 % (12.0-15.0); WHITE BLOOD COUNT 12.9 x10^3/uL (4.8-10.8)
[2021-12-12 08:59] LABS: ALBUMIN 3.6 g/dL (3.2-5.5); BILIRUBIN,TOTAL 0.6 mg/dL (0.2-1.0); CREATININE 0.6 mg/dL (0.4-1.0); POTASSIUM 3.9 mmol/L (3.5-5.0); TOTAL PROTEIN 7.2 g/dL (6.7-8.2)
--- NOTE | 2021-12-12 09:06 | ED Physician Documentation ---
PD HPI ABD PAIN - Stated complaint Stated Complaint: ABD PX - Chief complaint Chief Complaint: Abd Pain - History obtained from History obtained from: Patient - History of Present Illness Timing - onset: How many days ago (2) Timing - duration: Days (2) Timing - details: Gradual onset, Still present, Waxing and waning Quality: Cramping, Aching, Pain Location: Suprapubic Radiation: Lower back Worsened by: Other (urinating) Associated symptoms: Dysuria, Other (no wound redness nor drainage on abd.). No: Fever, Nausea, Vomiting, Hematuria, Vaginal bleeding, Vaginal dc Recently seen: Surgery (hysterectomy [address] Carbone, with normal healing and post op exam.) Review of Systems Constitutional: denies: Fever, Chills GI: reports: Abdominal Pain. denies: Nausea, Vomiting, Diarrhea : reports: Dysuria, Frequency. 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 : Kidney stones HEENT: None Psych: Depression, Anxiety, Panic attacks, ADD/ADHD, Post traumatic stress disorder Musculoskeletal: None Derm: None - Past Surgical History Past Surgical History: Yes General: Cholecystectomy - Present Medications Home Medications: Ambulatory Orders Medication Instructions Recorded Confirmed cloNIDine [Catapres] 0.1 mg PO BID 10/23/18 12/12/21 Desvenlafaxine Succinate [Pristiq] 50 mg PO DAILY 07/17/21 12/12/21 Omeprazole 40 mg PO DAILY 11/16/21 12/12/21 hydroCHLOROthiazide [Hydrodiuril] 25 mg PO DAILY 11/16/21 12/12/21 Acetaminophen [Acetaminophen Extra 1,000 mg PO Q8H PRN #60 tablet 11/29/21 12/12/21 Strength] Ibuprofen [Motrin] 600 mg PO Q6H PRN #60 tab 11/29/21 12/12/21 Phenazopyridine HCl [Pyridium] 100 mg PO TID PRN #15 tablet 12/12/21 Sulfamethox/Trimeth 800/160 1 each PO BID 5 Days #10 tablet 12/12/21 [Bactrim Ds 800/160] - Allergies Allergies/Adverse Reactions: Allergies Allergy/AdvReac Type Severity Reaction Status Date / Time amoxicillin trihydrate * Allergy Rash Verified 12/12/21 08:26 [From Augmentin] azithromycin [From Zithromax] Allergy Hives Verified 12/12/21 08:26 Penicillins Allergy Hives Verified 12/12/21 08:26 potassium clavulanate * Allergy Rash Verified 12/12/21 08:26 [From Augmentin] hydromorphone [From Dilaudid] AdvReac Emesis Verified 12/12/21 08:26 - Social History Does the pt smoke?: No Smoking Status: Current every day smoker (vapes. 1/2 pack per day for 20 years) Does the pt drink ETOH?: No Does the pt have substance abuse?: No - Immunizations Immunizations are current?: Yes - POLST Patient has POLST: No PD ED PE NORMAL - Vitals Vital signs reviewed: Yes - General General: Alert and oriented X 3, No acute distress, Well developed/nourished - Cardiac Cardiac: RRR, No murmur - Respiratory Respiratory: Clear bilaterally - Abdomen Abdomen: Normal bowel sounds, Soft, Non tender, Non distended, No organomegaly, Other (surgical wounds well healing without signs of infection. ) - Female Female : Deferred - Back Back: No CVA TTP - Derm Derm: Normal color, Warm and dry Results - Vitals Vitals: Oxygen O2 Source Room air - Labs Labs: Laboratory Tests 12/12/21 12/12/21 12/12/21 08:30 08:41 08:41 WBC 12.9 H RBC 4.32 Hgb 12.0 Hct 36.4 L MCV 84.3 MCH 27.8 MCHC 33.0 RDW 12.7 Plt Count 403 MPV 8.3 Neut # (Auto) 9.7 H Lymph # (Auto) 2.0 [place] # (Auto) 0.7 Eos # (Auto) 0.3 Baso # (Auto) 0.0 Absolute Nucleated RBC 0.00 Nucleated RBC % 0.0 Sodium 136 Potassium 3.9 Chloride 101 Carbon Dioxide 24 Anion Gap 11.0 BUN 12 Creatinine 0.6 Estimated GFR (MDRD) 109 Glucose 121 H Calcium 9.0 Total Bilirubin 0.6 AST 12 ALT 17 Alkaline Phosphatase 82 Total Protein 7.2 Albumin 3.6 Globulin 3.6 Albumin/Globulin Ratio 1.0 Lipase 26 Urine Color YELLOW Urine Clarity CLEAR Urine pH 5.5 Ur Specific [place] >=1.030 H Urine Protein NEGATIVE Urine Glucose (UA) NEGATIVE Urine Ketones NEGATIVE Urine Occult Blood MODERATE H Urine Nitrite NEGATIVE Urine Bilirubin NEGATIVE Urine Urobilinogen 0.2 (NORMAL) Ur Leukocyte Esterase NEGATIVE Urine RBC 6-10 H Urine WBC 0-3 Ur Squamous Epith Cells MANY Squamous H Urine Bacteria Few Ur Microscopic Review INDICATED Urine Culture Comments NOT INDICATED PD MEDICAL DECISION MAKING - ED course Complexity details: reviewed results, considered differential (symptoms really only of dysuria and bladder/back pain. UA Not remarkalbe, but can treat empirically for presumed urethritis and see if improves. ), d/w patient Departure - Departure Disposition: 01 Home, Self Care Clinical Impression: Dysuria UTI (urinary tract infection) Qualifiers: Urinary tract infection type: urethritis Qualified Code(s): N34.2 - Other urethritis Condition: Stable Record reviewed to determine appropriate education?: Yes Instructions: ED UTI Cystitis Female Follow-Up: Basilia Carbone MD [Primary Care Provider] - Prescriptions: Sulfamethox/Trimeth 800/160 [Bactrim Ds 800/160] 1 each PO BID 5 Days #10 tablet Phenazopyridine HCl [Pyridium] 100 mg PO TID PRN #15 tablet PRN Reason: Abdominal Pain Comments: Your urine sample here has some white cells and a little blood to it so suggestive of an infection. This would correlate with your symptoms. I think we can treat it as a urinary tract infection with Bactrim and Pyridium antibiotic and medication to help with the symptoms. Recheck if not improving well over the next couple of days. Tylenol or ibuprofen if needed for pains as well. Return if increased pain, fevers, vomiting, other concerns. I transmitted your prescriptions to [facility] pharmacy in [place]. Discharge Date/Time: 12/12/21 11:05
[2021-12-12 09:40] LABS: BILIRUBIN,URINE NEGATIVE (NEGATIVE); GLUCOSE, URINE (UA) NEGATIVE (NEGATIVE); KETONES,URINE (UA) NEGATIVE (NEGATIVE); LEUKOCYTE ESTERASE, URINE NEGATIVE (NEGATIVE); NITRITE,URINE NEGATIVE (NEGATIVE); OCCULT BLOOD,URINE MODERATE (NEGATIVE); PH,URINE 5.5 PH (5.0-7.5); PROTEIN,URINE NEGATIVE (NEGATIVE); UROBILINOGEN,URINE 0.2 (NORMAL) E.U./dL (NORMAL)
[2021-12-12 09:41] LABS: CLARITY,URINE CLEAR (CLEAR)
[2021-12-12 09:52] LABS: BACTERIA,URINE Few /HPF (None Seen); SQUAMOUS EPITHELIAL CELL,UR MANY Squamous (<= Few); WBC,URINE 0-3 /HPF (0-5)
[2021-12-12] MEDS ORDERED: SULFAMETH/TRIMETH DS 800/160 MG TABLET PO STA (10:04)
[2021-12-12] MEDS ORDERED: PHENAZOPYRIDINE 100 MG TABLET PO STA (10:04)
[2021-12-12 11:05] VITALS: BP 133/86
== END 2021-12-12 11:05 | disposition home or self-care (01) ==
LOC: ED 08:19
DX: N34.2 Other urethritis (principal); I10 Essential (primary) hypertension; F17.290 Nicotine dependence, other tobacco product, uncomplicated
CPT/HCPCS: 36415; 51798; 80053; 81001; 83690; 85025; 99282; 99283; A9270; 81003; 87086

== ENCOUNTER 2022-11-14 08:00 | Outpatient (CLI) | payer MEDICAID | END 2022-11-14 23:59 | disposition home or self-care (01) | LOC: LAB.WCP 08:00 | PROVIDERS: ATTEND Physician Assistant Medical | DX: R10.31 Right lower quadrant pain (principal) | CPT/HCPCS: 87086 ==

== ENCOUNTER 2022-11-14 17:41 | Outpatient (CLI) | payer MEDICAID ==
--- NOTE | 2022-11-14 18:15 | CT Report ---
PROCEDURE: ABDOMEN/PELVIS WO INDICATIONS: ABDOMINAL PAIN,RIGHT LOWER QUADRANT TECHNIQUE: Noncontrast 5 mm thick sections acquired from the diaphragms to the symphysis. 5 mm coronal and sagi ttal reformats were then performed. For radiation dose reduction, the following was used: automated exposure control, adjustment of mA and/or kV according to patient size. COMPARISON: None. FINDINGS: Image quality: Excellent. ABDOMEN: Lung bases: Lung bases are clear. Heart size is normal. Solid organs: Liver is enlarged, and demonstrates diffusely decreased density. 50 mm diameter low-de nsity focus within the anterior spleen. Gallbladder is surgically absent Pancreas is normal in conto urs. No adrenal nodules. Kidneys are normal in size, without hydronephrosis or nephrolithiasis. Peritoneum and bowel: Unenhanced bowel loops demonstrate normal wall thickness and caliber. No free fluid or air. Normal appendix. Nodes and vessels: No retroperitoneal or mesenteric adenopathy by size criteria. Aorta and inferior vena cava are normal in caliber. Miscellaneous: No ventral hernias. PELVIS: Genitourinary: Bladder wall thickness is normal. Miscellaneous: No inguinal hernias or adenopathy. Bones: No suspicious bony lesions. No vertebral body compression fractures. IMPRESSION: 1. No acute process. 2. Normal appendix. 3. Hepatic steatosis. 4. No evidence of urinary tract calcification, nor junction. 5. Anterior splenic hypodensity; initial further assessment with nonemergent outpatient follow-up ult rasound examination is recommended. Reviewed by: Prabha Foy MD on 11/14/2022 6:14 PM PDT Approved by: Prabha Foy MD on 11/14/2022 6:14 PM PDT Station ID: [id number]
== END 2022-11-14 17:42 | disposition home or self-care (01) ==
LOC: DI 17:41
PROVIDERS: ATTEND Physician Assistant Medical
DX: R10.31 Right lower quadrant pain (principal); R31.9 Hematuria, unspecified; K76.0 Fatty (change of) liver, not elsewhere classified

== ENCOUNTER 2022-11-16 10:49 | Outpatient (CLI) | payer MEDICAID ==
[2022-11-16 11:16] LABS: BASOPHILS # (AUTO) 0.1 10^3/uL (0.0-0.1); BASOPHILS % (AUTO) 0.5 %; EOSINOPHILS # (AUTO) 0.2 10^3/uL (0.0-0.7); EOSINOPHILS % (AUTO) 2.1 %; HCT - HEMATOCRIT 40.9 % (37.0-47.0); HGB - HEMOGLOBIN 13.4 g/dL (12.0-16.0); LYMPHOCYTES # (AUTO) 2.6 10^3/uL (1.5-3.5); LYMPHOCYTES % (AUTO) 27.7 %; MEAN CORPUSCULAR HEMOGLOBIN 27.9 pg (27.0-31.0); MEAN CORPUSCULAR HGB CONC 32.8 g/dL (32.0-36.0); MEAN PLATELET VOLUME 8.7 fL (7.9-10.8); MONOCYTES # (AUTO) 0.4 10^3/uL (0.0-1.0); MONOCYTES % (AUTO) 4.2 %; NEUTROPHILS % (AUTO) 64.5 %; PLT - PLATELET COUNT 426 10^3/uL (130-450); RED BLOOD COUNT 4.81 10^6/uL (4.20-5.40); RED CELL DISTRIBUTION WIDTH 12.5 % (12.0-15.0); WHITE BLOOD COUNT 9.2 x10^3/uL (4.8-10.8)
[2022-11-16 11:29] LABS: ALBUMIN 4.1 g/dL (3.2-5.5); ALBUMIN/GLOBULIN RATIO 1.2 (1.0-2.2); BILIRUBIN,TOTAL 0.6 mg/dL (0.2-1.0); CALCIUM 8.9 mg/dL (8.5-10.3); CREATININE 0.7 mg/dL (0.4-1.0); POTASSIUM 3.1 mmol/L (3.5-5.0); TOTAL PROTEIN 7.4 g/dL (6.7-8.2)
[2022-11-16 11:47] LABS: THYROID STIMULATING HORMONE 1.82 uIU/mL (0.34-5.60)
[2022-11-16 12:15] LABS: FOLLICLE STIMULATING HORMONE 4.99 mIU/mL
== END 2022-11-16 10:50 | disposition home or self-care (01) ==
LOC: LAB 10:49
PROVIDERS: ATTEND Physician Assistant Medical
DX: R10.31 Right lower quadrant pain (principal); N95.1 Menopausal and female climacteric states; R23.2 Flushing
CPT/HCPCS: 36415; 80053; 83001; 83690; 84443; 85025; 87086

== ENCOUNTER 2022-12-24 14:46 | Outpatient (CLI) | payer MEDICAID ==
--- NOTE | 2022-12-25 10:20 | Mammography Report ---
BILATERAL DIGITAL SCREENING MAMMOGRAM 3D/2D: 12/24/2022 CLINICAL: Routine screening. Comparison is made to exams dated: 09/08/2021 mammogram, 09/16/2020 mammogram, and 07/13/2020 mammogram - [facility]. Both breasts are heterogeneously dense, which may obscure small masses (category c / 51-75% glandular tissue). No significant masses, calcifications, or other findings are seen in either breast. There has been no significant interval change. IMPRESSION: NEGATIVE There is no mammographic evidence of malignancy. A 1 year screening mammogram is recommended. Based on the Tyrer Cuzick model (a risk assessment model) the patients lifetime risk is 10.2% and he r 10 year risk is 1.7%. According to the ACR, ACS, and NCCN guidelines, an annual breast MRI exam devorah ng with mammogram is recommended if the patients lifetime risk is 20% or greater. This exam was interpreted at Station ID: [id number]. NOTE: For mammograms, a report in lay terms will be sent to the patient. Approximately 15% of breast malignancies will not be visualized mammographically. In the management of a palpable breast mass, a negative mammogram must not discourage biopsy of a clinically suspicious lesion. Electronically Signed By: Rafael angel/molly:12/25/2022 07:59:29 letter sent: No_Letter ACR BI-RADS Category 1: Negative 3341F PARENCHYMAL PATTERN: (D) - The breast(s) demonstrate(s) heterogeneously dense fibroglandular erin amos. BI-RADS CATEGORY: (1) - 1 Mammogram [id number] 1 year screening LATERALITY: (B)
== END 2022-12-24 14:47 | disposition home or self-care (01) ==
LOC: DI 14:46
DX: Z12.31 Encounter for screening mammogram for malignant neoplasm of breast (principal)

== ENCOUNTER 2023-03-04 10:28 | Emergency (ER) | payer SELFPAY ==
--- NOTE | 2023-03-04 11:00 | XRAY Report ---
PROCEDURE: Ankle 3 View LT INDICATIONS: Left ankle/lateral foot pain today. No known trauma. TECHNIQUE: 3 views of the ankle were acquired. COMPARISON: None. FINDINGS: Bones: No fractures or dislocations. Ankle mortise is normally aligned. No suspicious bony lesions . Soft tissues: No tibiotalar joint effusion. Achilles tendon appears normal. IMPRESSION: No displaced fracture or significant joint effusion. Reviewed by: Adriano Ramos on 03/04/2023 10:59 AM PDT Approved by: Adriano Ramos on 03/04/2023 10:59 AM PDT Station ID: [id number]
--- NOTE | 2023-03-04 11:51 | ED Physician Documentation ---
PD HPI LOWER EXT INJURY - Stated complaint Stated Complaint: LT ANKLE PX - Chief complaint Chief Complaint: Ext Problem - History obtained from History obtained from: Patient - Additional information Additional information: After heavy day of errands on Saturday she woke yesterday, Saturday with lateral ankle pain that was otherwise atraumatic. She is never had this before. It can get better during the day yesterday and then got worse again today such that she is unable to bear weight. No fevers or chills or redness. 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: Hysterectomy - Present Medications Home Medications: Ambulatory Orders Medication Instructions Recorded Confirmed cloNIDine [Catapres] 0.1 mg PO BID 10/23/18 12/12/21 Desvenlafaxine Succinate [Pristiq] 50 mg PO DAILY 07/17/21 12/12/21 Omeprazole 40 mg PO DAILY 11/16/21 12/12/21 hydroCHLOROthiazide [Hydrodiuril] 25 mg PO DAILY 11/16/21 12/12/21 Acetaminophen [Acetaminophen Extra 1,000 mg PO Q8H PRN #60 tablet 11/29/21 12/12/21 Strength] Ibuprofen [Motrin] 600 mg PO Q6H PRN #60 tab 11/29/21 12/12/21 Phenazopyridine HCl [Pyridium] 100 mg PO TID PRN #15 tablet 12/12/21 Sulfamethox/Trimeth 800/160 1 each PO BID 5 Days #10 tablet 12/12/21 [Bactrim Ds 800/160] - Allergies Allergies/Adverse Reactions: Allergies Allergy/AdvReac Type Severity Reaction Status Date / Time amoxicillin trihydrate * Allergy Rash Verified 03/04/23 10:39 [From Augmentin] azithromycin [From Zithromax] Allergy Hives Verified 03/04/23 10:39 Penicillins Allergy Hives Verified 03/04/23 10:39 potassium clavulanate * Allergy Rash Verified 03/04/23 10:39 [From Augmentin] hydromorphone [From Dilaudid] AdvReac Emesis Verified 03/04/23 10:39 - Social History Does the pt smoke?: No Smoking Status: Never smoker Does the pt drink ETOH?: No Does the pt have substance abuse?: No - Immunizations Immunizations are current?: Yes - POLST Patient has POLST: No PD ED PE NORMAL - Vitals Vital signs reviewed: Yes - General General: Alert and oriented X 3, No acute distress - Extremities Extremities: Other (Left ankle is visibly normal without redness warmth or swelling. There is tenderness focally over the peroneal tendon laterally. No tenderness over the anterior ankle or medial malleolus or Achilles. Flexion extension is relatively painless compared to internal rotation which is painful.) - Neuro Neuro: Alert and oriented X 3, Normal speech - Psych Psych: Normal mood, Normal affect Results - Vitals Vitals: Vital Signs - 24 hr 03/04/23 10:37 Temperature 36.0 C L Heart Rate 96 Respiratory 16 Rate Blood Pressure 134/83 H O2 Saturation 97 Oxygen O2 Source Room air PD Medical Decision Making - ED course ED course: There is no sign of infection. History and physical is consistent with peroneal tendinitis. She is placed in a boot and crutches. Advised on NSAID use and follow-up as well as return precautions Departure - Departure Disposition: 01 Home, Self Care Clinical Impression: Peroneal tendinitis, left leg Condition: Good Record reviewed to determine appropriate education?: Yes Instructions: Tendinitis Foot Follow-Up: Hubert Roe, DPM [Physician No Access] - Comments: As discussed, this is consistent with peroneal tendinitis of the left ankle. General rest and immobilization. Heat is good to and elevation. You can take ibuprofen for pain as per package instructions and reasonable to follow-up with the vehicle insurance agent if not improving over the next few days. Return if worse, if you develop redness, swelling, increased pain, or fever. Forms: Activity restrictions
[2023-03-04 12:24] VITALS: BP 129/80
== END 2023-03-04 12:22 | disposition home or self-care (01) ==
LOC: ED 10:28
DX: M76.72 Peroneal tendinitis, left leg (principal); I10 Essential (primary) hypertension; Z79.899 Other long term (current) drug therapy
CPT/HCPCS: 99283

== ENCOUNTER 2023-06-24 10:47 | Outpatient (CLI) | payer MEDICAID ==
[2023-06-24 18:14] LABS: BASOPHILS # (AUTO) 0.1 10^3/uL (0.0-0.1); BASOPHILS % (AUTO) 0.7 %; EOSINOPHILS # (AUTO) 0.2 10^3/uL (0.0-0.7); EOSINOPHILS % (AUTO) 1.6 %; HCT - HEMATOCRIT 42.7 % (37.0-47.0); HGB - HEMOGLOBIN 13.6 g/dL (12.0-16.0); LYMPHOCYTES # (AUTO) 2.8 10^3/uL (1.5-3.5); MEAN CORPUSCULAR HEMOGLOBIN 27.9 pg (27.0-31.0); MEAN CORPUSCULAR HGB CONC 31.9 g/dL (32.0-36.0); MEAN CORPUSCULAR VOLUME 87.5 fL (81.0-99.0); MEAN PLATELET VOLUME 8.7 fL (7.9-10.8); MONOCYTES # (AUTO) 0.5 10^3/uL (0.0-1.0); MONOCYTES % (AUTO) 5.1 %; NEUTROPHILS # (AUTO) 6.4 10^3/uL (1.5-6.6); NEUTROPHILS % (AUTO) 63.9 %; PLT - PLATELET COUNT 443 10^3/uL (130-450); RED BLOOD COUNT 4.88 10^6/uL (4.20-5.40); RED CELL DISTRIBUTION WIDTH 13.1 % (12.0-15.0)
[2023-06-24 18:40] LABS: ALBUMIN 4.4 g/dL (3.2-5.5); ALBUMIN/GLOBULIN RATIO 1.5 (1.0-2.2); BILIRUBIN,TOTAL 0.4 mg/dL (0.2-1.0); CALCIUM 9.4 mg/dL (8.5-10.3); CREATININE 0.8 mg/dL (0.6-1.3); POTASSIUM 3.7 mmol/L (3.5-4.5); TOTAL PROTEIN 7.4 g/dL (6.4-8.9)
[2023-06-24 18:53] LABS: THYROID STIMULATING HORMONE 4.28 uIU/mL (0.34-5.60)
[2023-06-24 21:05] LABS: ESTIMATED AVERAGE GLUCOSE 131 mg/dL (70-100); HEMOGLOBIN A1c% 6.2 % (4.27-6.07)
== END 2023-06-24 10:48 | disposition home or self-care (01) ==
LOC: LAB.N 10:47
PROVIDERS: ATTEND Nurse Practitioner Family
DX: I10 Essential (primary) hypertension (principal); R42 Dizziness and giddiness; G47.00 Insomnia, unspecified
CPT/HCPCS: 36415; 80050; 83036

== ENCOUNTER 2024-01-09 13:29 | Outpatient (CLI) | payer MEDICAID | END 2024-01-09 13:30 | disposition home or self-care (01) | LOC: LAB.N 13:29 | PROVIDERS: ATTEND Nurse Practitioner | DX: Z11.1 Encounter for screening for respiratory tuberculosis (principal) | CPT/HCPCS: 36415; 81599 ==

== ENCOUNTER 2024-01-14 11:48 | Outpatient (CLI) | payer MEDICAID | END 2024-01-14 11:49 | disposition home or self-care (01) | LOC: LAB.N 11:48 | PROVIDERS: ATTEND Physician Assistant Medical | DX: R39.15 Urgency of urination (principal) | CPT/HCPCS: 87086 ==